=== PATIENT | female | born 1990 | race Caucasian/White ===

== ENCOUNTER 2021-04-02 14:40 | Emergency (ER) | payer OTHER, SELFPAY ==
--- NOTE | ~2021-04-02 | XR_ITS ---
EXAMINATION: XR hand RT min 3V DATE: 04/02/2021 15:04 INDICATION: Right hand injury and pain. TECHNIQUE: 3 views of right hand were obtained. COMPARISON: None. FINDINGS: Bone alignment is normal. No fracture. Joint spaces are well maintained. IMPRESSION: 1. Normal right hand. Reviewed, dictated and finalized at location B. IMPRESSION: 1. Normal right hand.
[2021-04-02 15:05] VITALS: BP 142/93; PULSE 96; RESP 16; TEMP 36.6; O2SAT 100
--- NOTE | 2021-04-02 15:19 | ED.UPPEXIN ---
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 EYES: Denies visual changes, redness, discharge. ENT: Denies rhinorrhea, congestion, sore throat, otalgia. CARDIOVASCULAR: Denies chest pain, palpitations, edema. RESPIRATORY: Denies dyspnea, wheezing, cough GASTROINTESTINAL: Denies abdominal pain, nausea, vomiting, diarrhea. GENITOURINARY: Denies dysuria, hematuria, abnormal discharge SKIN: Denies rash or itching. NEUROLOGIC: Denies numbness, or focal weakness. PSYCHIATRIC: Denies anxiety or depression. Right hand injury PMFSH Past Medical History Medical History No acute medical problems Family History Family History (Updated 04/02/21 @ 15:25 by Audra Billingsley CNP) Other No acute medical problems Social History Social History Smoking status: Never smoker Alcohol intake: current Gender identity (if verbalized by the patient): Female Comments At time of signature, I agree with nursing past medical, surgical, social and family history. There is no relevant family history pertinent to the presenting complaint. Blood pressure elevated at this visit and should follow-up with primary care physician Exam Narrative: Exam Narrative: GENERAL: This is a well-nourished, well-developed patient, in mild distress. HEAD: normocephalic, atraumatic. EYES: Sclera clear/white. Vision is grossly intact. EARS: External ears normal. Hearing grossly intact. NOSE: External nose normal without nasal discharge, nares without redness, no rhinorrhea. THROAT: Mucous membranes moist, NECK: Neck supple, non-tender CARDIOVASCULAR: Regular rate and rhythm without murmurs, gallops, or rubs. RESPIRATORY: Clear to auscultation. Breath sounds equal bilaterally. No wheezes, rales, or rhonchi. GASTROINTESTINAL: Abdomen soft, non-tender, SKIN: warm, intact with no suspicious lesions or rash, good texture and turgor. NEURO: awake, alert, and oriented to person, place and time. There were no obvious focal neurologic abnormalities. Steady gait EXTREMITIES: Normal range of motion. Base of right thumb is mildly edematous without ecchymosis able to do finger opposition and and nerve finger strength is equal BACK: Nontender without deformity Course Course Emergency Course: Patient comes to [facility] for evaluation of base of right thumb that was [facility] when a [id number] child fell on her hand that occurred today Right hand x-ray is unremarkable for fracture there is only mild edema to the base of the thumb Ricardo wrap applied given directions on rice and 1 day work excuse for Monday Vital Signs Vital signs: Vital Signs Temperature 97.8 F 04/02/21 15:05 Pulse Rate 96 04/02/21 15:05 Respiratory Rate 16 04/02/21 15:05 Blood Pressure 142/93 H 04/02/21 15:05 Pulse Oximetry 100 04/02/21 15:05 Temperature 97.8 F 04/02/21 15:05 Pulse Rate 96 04/02/21 15:05 Respiratory Rate 16 04/02/21 15:05 Blood Pressure 142/93 H 04/02/21 15:05 Pulse Oximetry 100 04/02/21 15:05 MDM - Extremity Injury (Upper) Differential Diagnosis Differential diagnosis: Likely sprain and s
== END 2021-04-02 15:35 | disposition home or self-care (01) ==
PROVIDERS: Emergency Provider Nurse Practitioner; PCP Physician Assistant
DX: S69.91XA Unspecified injury of right wrist, hand and finger(s), initial encounter (principal); W19.XXXA Unspecified fall, initial encounter
CPT/HCPCS: 73130; 99203; G0463

== ENCOUNTER 2021-06-10 14:17 | Emergency (ER) | payer OTHER, SELFPAY ==
[2021-06-10 14:27] VITALS: BP 152/93; PULSE 96; RESP 20; TEMP 36.6; O2SAT 100
--- NOTE | 2021-06-10 14:47 | ED.URI ---
HPI - URI/Sore Throat General Chief Complaint: Upper Respiratory Infection Stated Complaint: Cough Time Seen by Provider: 06/10/21 14:47 Source: patient Mode of arrival: ambulatory Limitations: no limitations History of Present Illness HPI Narrative: Fercho Parrish is a 30-year-old female with no PMH who comes to [facility] with complaints of a cough that started a week ago. 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 However the symptoms are improving she has a chronic cough that gets so bad she says that she will start coughing and cannot stop until she vomits Related Data Home Medications Medication Instructions Recorded Confirmed Pseudoephedrine Pe 06/10/21 Unknown Cough Suppresant 06/10/21 Unknown Nasal [place] 06/10/21 Allergies Allergy/AdvReac Type Severity Reaction Status Date / Time No Known Allergies Allergy Verified 06/10/21 14:30 Review of Systems Review of Systems: Narrative: CONSTITUTIONAL: Denies fever, chills, sweats. EYES: Denies visual changes, redness, discharge. ENT: Denies rhinorrhea, congestion, sore throat, otalgia. CARDIOVASCULAR: Denies chest pain, palpitations, edema. RESPIRATORY: Denies dyspnea, wheezing, intermittent dry cough that continues until she vomits GASTROINTESTINAL: Denies abdominal pain, nausea, vomiting, diarrhea. GENITOURINARY: Denies dysuria, hematuria, abnormal discharge SKIN: Denies rash or itching. NEUROLOGIC: Denies numbness, or focal weakness. PSYCHIATRIC: Denies anxiety or depression. [facility] Past Medical History Medical History No acute medical problems Family History Family History Other Diabetes mellitus Hypertension Social History Social History Smoking status: Never smoker Alcohol intake: current Gender identity (if verbalized by the patient): Female Comments At time of signature, I agree with nursing past medical, surgical, social and family history. There is no relevant family history pertinent to the presenting complaint. Patient has high blood pressure at this visit and should follow-up with her PCP (did not follow up from last visit) Exam Narrative: Exam Narrative: GENERAL: This is a well-nourished, well-developed patient, in mild distress. HEAD: normocephalic, atraumatic. EYES: . Sclera clear/white. Vision is grossly intact. EARS: External ears normal, auditory canals clear and without drainage, TMs normal without perforation. Hearing grossly intact. NOSE: External nose normal without nasal discharge, nares with mild redness, no rhinorrhea. Has nasal congestion THROAT: Mucous membranes moist, posterior pharynx mild erythema NECK: Neck supple, non-tender CARDIOVASCULAR: Regular rate and rhythm without murmurs, gallops, or rubs. RESPIRATORY: Coarse to auscultation. Breath sounds equal bilaterally. No wheezes, rales, or rhonchi. GASTROINTESTINAL: Abdomen soft, non-tender, SKIN: warm, intact with no suspicious lesions or rash, good texture and turgor. NEURO: awake, alert, and oriented to person, place and time. There were no obvious focal neurologic abnormalities. Steady gait EXTREMITIES: Normal range of motion. BACK: Nontender without deformity Course Course Emergency Course: Patient here with dry cough become spastic at times to report that she vomits. Still has nasal congestion Patient started on prednisone and codeine cough syrup Vital Signs Vital signs: Vital Signs Temperature 97.9 F 06/10/21 14:27 Pulse Rate 96 06/10/21 14:27 Respiratory Rate 20 06/10/21 14:27 Blood Pressure 152/93 H 06/10/21 14:27 Pulse Oximetry 100 06/10/21 14:27 Temperature 97.9 F 06/10/21 14:27 Pulse Rate 96 06/10/21 14:27 Respiratory Rate 20
== END 2021-06-10 15:12 | disposition home or self-care (01) ==
PROVIDERS: Emergency Provider Nurse Practitioner
DX: J40 Bronchitis, not specified as acute or chronic (principal)
CPT/HCPCS: 99213; G0463

== ENCOUNTER 2021-12-20 11:14 | Emergency (ER) | payer OTHER, SELFPAY ==
[2021-12-20 11:23] VITALS: BP 142/73; PULSE 94; RESP 18; TEMP 37.2; O2SAT 99
--- NOTE | 2021-12-20 11:39 | ED.EAR ---
HPI - Ear Problem General Chief complaint: Ear Stated complaint: Ear Pain Time Seen by Provider: 12/20/21 11:39 Source: patient, RN notes reviewed and old records reviewed Mode of arrival: ambulatory Limitations: no limitations History of Present Illness HPI Narrative: 31-year-old female presents to the [facility] with complaints of left ear pressure and sinus congestion for the last couple of days. Denies fever. States that she feels there is fluid in her ear. Has been using earwax remover to try to help with no improvement MD Complaint: ear pain Location: left ear Related Data Allergies Allergy/AdvReac Type Severity Reaction Status Date / Time No Known Allergies Allergy Verified 12/20/21 11:32 Review of Systems Review of Systems: All systems reviewed & are unremarkable except as noted in HPI and below Constitutional: Constitutional: Reports no additional constitutional complaints, Denies chills and Denies fever(s) Eyes: Eyes: Reports no additional eye complaints ENT: Reports as per HPI, Denies change in voice, Denies dental pain, Denies vertigo, Denies dizziness and Denies throat swelling Comments: Ear pain, left Cardiovascular: Cardiovascular: Reports no additional cardiovascular complaints, Denies chest pain and Denies dyspnea Respiratory: Respiratory: Reports no additional respiratory complaints, Denies cough and Denies dyspnea Gastrointestinal: Gastrointestinal: Reports no additional gastrointestinal complaints, Denies abdominal pain, Denies nausea and Denies vomiting Musculoskeletal: Musculoskeletal: Reports no additional musculoskeletal complaints Integumentary/Breasts: Skin/Breast: Reports system reviewed and no additional complaints, except as docu Neurologic: Reports system reviewed and no additional complaints, except as documented, Denies vertigo and Denies dizziness Psychiatric: Psychiatric: Reports no additional psychiatric complaints Allergic/Immunologic: Allergic/Immunologic: Reports no additional allergic/immunologic complaints and Denies throat swelling PMF Past Medical History Medical History No acute medical problems Family History Family History Other Diabetes mellitus Hypertension Social History Social History Smoking status: Never smoker Alcohol intake: current Gender identity (if verbalized by the patient): Female Comments At the time of my signature, I reviewed and agree with the nursing past medical, surgical, social, and family history. There is no relevant family history pertinent to the patient complaint. Exam Const: General: healthy appearing and no acute distress Nutritional Appearance: well nourished Orientation/consciousness: patient oriented x3 Limitations: no limitations HENMT: Head: normal to inspection Ears: external ears normal, TM's normal bilaterally (Right side normal), EAC's normal and TM abnormal bulging on the left and with fluid behind the TM; not erythematous and with no loss of landmarks General nose exam: Normal external nose present and Normal nasal mucous membranes and turbinates present Face and sinus: normal facial exam Mouth: Yes Normal oral and palatal mucosa present Throat: posterior oropharynx normal, tonsils normal and uvula midline Eyes: Conjunctivae: conjunctivae normal Pupils: Equal, round and reactive pupils present Neck: Neck: normal visual inspection, no lymphadenopathy and no meningeal signs Chest: Chest palpation & inspection: normal inspection of the chest Resp: Effort & Inspection: normal respiratory effort and no use of accessory muscles Auscultation: clear to auscultation bilaterally, no crackles, no rales, no rhonchi and no wheezes Cardio: Rate: regular rate Rhythm: regular rhythm : General: Yes no CVA tenderness Skin: General skin exam: normal color Rashes: no rashe
== END 2021-12-20 11:55 | disposition home or self-care (01) ==
PROVIDERS: Emergency Provider Nurse Practitioner
DX: H65.02 Acute serous otitis media, left ear (principal); Z86.16 Personal history of COVID-19
CPT/HCPCS: 99213; G0463

== ENCOUNTER 2022-02-08 18:47 | Emergency (ER) | payer OTHER, SELFPAY ==
[2022-02-08 18:58] VITALS: BP 119/88; PULSE 83; RESP 16; TEMP 36.2; O2SAT 98
--- NOTE | 2022-02-08 19:11 | ED.URI ---
HPI - URI/Sore Throat General Chief Complaint: Upper Respiratory Infection Stated Complaint: sore throat Time Seen by Provider: 02/08/22 19:11 Source: patient, family, RN notes reviewed and old records reviewed Mode of arrival: ambulatory Limitations: no limitations History of Present Illness HPI Narrative: 31-year-old female presents to the [facility] with complaints of sore throat, runny nose that started this morning. No treatment prior to arrival. Work told her she needed to be seen. Denies fevers, chest pain, abdominal pain. MD elicited complaint: sore throat, rhinorrhea and nasal congestion Related Data Allergies Allergy/AdvReac Type Severity Reaction Status Date / Time No Known Allergies Allergy Verified 02/08/22 19:14 Review of Systems Review of Systems: All systems reviewed & are unremarkable except as noted in HPI and below Constitutional: Constitutional: Reports no additional constitutional complaints, Denies chills, Denies fever(s) and Denies headache(s) Eyes: Eyes: Reports no additional eye complaints ENT: Reports as per HPI, Denies vertigo, Denies dizziness, Denies headache(s), Reports nasal congestion and Reports sore throat Cardiovascular: Cardiovascular: Reports no additional cardiovascular complaints, Denies chest pain, Denies syncope, Denies rapid heart rate and Denies dyspnea Respiratory: Respiratory: Reports no additional respiratory complaints, Denies cough, Denies dyspnea and Denies wheezing Gastrointestinal: Gastrointestinal: Reports no additional gastrointestinal complaints, Denies abdominal pain, Denies diarrhea, Denies nausea and Denies vomiting Musculoskeletal: Musculoskeletal: Reports no additional musculoskeletal complaints and Denies numbness Integumentary/Breasts: Skin/Breast: Reports system reviewed and no additional complaints, except as docu Neurologic: Reports system reviewed and no additional complaints, except as documented, Denies vertigo, Denies dizziness, Denies syncope, Denies headache(s), Denies focal weakness and Denies numbness Psychiatric: Psychiatric: Reports no additional psychiatric complaints Allergic/Immunologic: Allergic/Immunologic: Reports no additional allergic/immunologic complaints and Denies wheezing PMFSH Past Medical History Medical History No acute medical problems Family History Family History Other Diabetes mellitus Hypertension Social History Social History Smoking status: Never smoker Alcohol intake: current Gender identity (if verbalized by the patient): Female Comments At the time of my signature, I reviewed and agree with the nursing past medical, surgical, social, and family history. There is no relevant family history pertinent to the patient complaint. Exam Const: General: cooperative, healthy appearing, no acute distress, well developed and alert Nutritional Appearance: well nourished and obese Orientation/consciousness: patient oriented x3 Limitations: no limitations HENMT: Head: normal to inspection Ears: external ears normal, EAC's normal and TM abnormal with fluid behind the TM bilateral; not erythematous Eyes: Conjunctivae: conjunctivae normal Pupils: Equal, round and reactive pupils present Neck: Neck: normal visual inspection, no lymphadenopathy and no meningeal signs Chest: Chest palpation & inspection: normal inspection of the chest Resp: Effort & Inspection: normal respiratory effort and no use of accessory muscles Auscultation: clear to auscultation bilaterally, no crackles, no rales, no rhonchi and no wheezes Cardio: Rate: regular rate Rhythm: regular rhythm : General: Yes no CVA tenderness Back/Spine/Pelvis: Back: no CVA tenderness Skin: General skin exam: normal color Rashes: no rashes Wounds: no wounds Neuro: General: patient oriented
== END 2022-02-08 19:35 | disposition home or self-care (01) ==
PROVIDERS: Emergency Provider Nurse Practitioner
DX: B34.9 Viral infection, unspecified (principal); Z86.16 Personal history of COVID-19
CPT/HCPCS: 87804; 99213; G0463

== ENCOUNTER 2022-08-23 14:16 | Emergency (ER) | payer OTHER, SELFPAY ==
[2022-08-23 14:25] VITALS: BP 140/84; PULSE 88; RESP 16; TEMP 36.5; O2SAT 99
--- NOTE | 2022-08-23 14:49 | ED.URI ---
HPI - URI/Sore Throat General Chief Complaint: Upper Respiratory Infection Stated Complaint: sore throat Time Seen by Provider: 08/23/22 14:26 Source: patient, RN notes reviewed and old records reviewed Mode of arrival: ambulatory Limitations: no limitations History of Present Illness HPI Narrative: 31-year-old female presents to the [facility] with complaints of a sore throat that started 1 week ago. Denies fevers. Denies any other respiratory complaints. Has been gargling with salt water and taking ibuprofen. Patient states the right side hurts more than the left when she lays flat or swallows. Related Data Allergies Allergy/AdvReac Type Severity Reaction Status Date / Time No Known Allergies Allergy Verified 08/23/22 14:20 Review of Systems Review of Systems: All systems reviewed & are unremarkable except as noted in HPI and below Constitutional: Constitutional: Reports no additional constitutional complaints, Denies chills and Denies fever(s) Eyes: Eyes: Reports no additional eye complaints ENT: Reports as per HPI and Reports sore throat Cardiovascular: Cardiovascular: Reports no additional cardiovascular complaints Respiratory: Respiratory: Reports no additional respiratory complaints Gastrointestinal: Gastrointestinal: Reports no additional gastrointestinal complaints Musculoskeletal: Musculoskeletal: Reports no additional musculoskeletal complaints Integumentary/Breasts: Skin/Breast: Reports system reviewed and no additional complaints, except as docu Neurologic: Reports system reviewed and no additional complaints, except as documented Psychiatric: Psychiatric: Reports no additional psychiatric complaints Allergic/Immunologic: Allergic/Immunologic: Reports no additional allergic/immunologic complaints [facility] Past Medical History Medical History No acute medical problems Surgical History Surgical History (Updated 08/23/22 @ 19:56 by Aurora Aguilar APRN) No history of previous surgery Family History Family History Other Diabetes mellitus Hypertension Social History Social History Smoking status: Never smoker Alcohol intake: current Gender identity (if verbalized by the patient): Female Comments At the time of my signature, I reviewed and agree with the nursing past medical, surgical, social, and family history. There is no relevant family history pertinent to the patient complaint. Exam Const: General: healthy appearing, no acute distress, alert and well nourished Nutritional Appearance: well nourished and obese Orientation/consciousness: patient oriented x3 Limitations: no limitations HENMT: Head: normal to inspection Ears: external ears normal, TM's normal bilaterally and EAC's normal Face/Nose/Sinus: Normal external nose present and Normal nares present Face and sinus: normal facial exam Mouth: Yes Normal oral and palatal mucosa present Throat: posterior oropharynx normal, tonsils normal, uvula midline and no uvular edema Eyes: General: appearance normal, both eyes and all related structures Pupils: Equal, round and reactive pupils present Neck: Neck: normal visual inspection, no lymphadenopathy and no meningeal signs Chest: Chest palpation & inspection: normal inspection of the chest Resp: Effort & Inspection: normal respiratory effort and no use of accessory muscles Auscultation: clear to auscultation bilaterally, no crackles, no rales, no rhonchi and no wheezes Cardio: Rate: regular rate Rhythm: regular rhythm Back/Spine/Pelvis: Cervical Spine: normal cervical lordosis Thoracic/Lumbar Spine: thoracic and lumbar spine normal to inspection Skin: General skin exam: normal color Rashes: no rashes Wounds: no wounds Neuro: General: patient oriented x3, moves all extremities, no meningeal signs and
== END 2022-08-23 14:59 | disposition home or self-care (01) ==
PROVIDERS: Emergency Provider Nurse Practitioner
DX: J02.8 Acute pharyngitis due to other specified organisms (principal); Z86.16 Personal history of COVID-19
CPT/HCPCS: 87081; 87880; 99213; G0463

== ENCOUNTER 2025-03-17 21:43 | Emergency (ER) | payer SELFPAY ==
--- OUTSIDE RECORDS SUMMARY | 2025-03-17 21:46 | XMS_ITS | Clinical Summary ---
Author Organization [facility] Address [address] [place] [phone] Phone Care Team Providers [employer] Sales Manager Name Role Phone Unavailable Primary Care Provider Unavailabl e Allergies No known active allergies Medications ferrous sulfate 325 mg (65 mg iron) tablet Starting 05/08: Take 1 Tablet (325 mg) by mouth daily. 90 Tablet 1 05/07/2024 12:09 PM CDT Active levonorgestreL (Mirena) 21 mcg/24hr (up to 8 yrs) 52 mg IUD by Intrauterine route. 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, single gestation 04/17/2024 Encounters Date Type Department Care Team Description 03/04/2025 External Device Data [facility] ABSTRACTION Provider, Abstract 03/04/2025 External Device Data [facility] ABSTRACTION Provider, Abstract 02/05/2025 External Device Data [facility] ABSTRACTION Provider, Abstract 02/05/2025 External Device Data [facility] ABSTRACTION Provider, Abstract 01/25/2025 External Device Data [facility] ABSTRACTION Provider, Abstract 01/24/2025 External Device Data [facility] ABSTRACTION Provider, Abstract 01/21/2025 External Device Data [facility] ABSTRACTION Provider, Abstract 01/08/2025 External Device Data [facility] ABSTRACTION Provider, Abstract 01/07/2025 External Device Data [facility] ABSTRACTION Provider, Abstract 12/24/2024 External Device Data [facility] ABSTRACTION Provider, Abstract from Last 3 Months Immunizations Immunization Administration Dates Next Due (ADACEL/BOOSTRIX)(10 YR UP) TDAP VACCINE, 0.5ML, IM 07/14/2020 Family History Medical History Relation Name Comments Diabetes Father Donar Relation Name Status Comments Father Donar Alive Mother Alive Social History Tobacco Use Types Packs/Day Years Used Date Smoking Tobacco: Never Passive Smoke Exposure: Never Smokeless Tobacco: Never Tobacco Cessation:Counseling Given: Not Answered Alcohol Use Standard Drinks/Week Comments Not Currently 0 (1 standard drink = 0.6 oz pur e alcohol) Feeling Safe Answer Date Recorded Are you in a relationship wi th someone who hurts you emotionally and/or physically? No 06/19/2024 Comments No Sex and Gender Information Value Date Recorded Sex Assigned at Not on file Legal Sex Female 5:55 AM CDT Gender Identity Not on file Sexual Orientation Not on file Last Filed Vital Signs Vital Sign Reading Time Taken Comments Blood Pressure 136/88 09/09/2024 9:54 AM CDT Pulse 79 06/22/2024 6:43 AM CDT Temperature 36.3 C (97.4 F) 06/22/2024 12:30 AM CDT Respiratory Rate 16 06/22/2024 12:3 0 AM CDT Oxygen Saturation 97% 06/20/2024 2:15 PM CDT Inhaled Oxygen Concentration - - Weight 120.6 kg (265 lb 12.8 oz) 09/09/2024 9:54 AM CDT Height 157.5 cm (5' 2 ) 06/19/2024 6:41 AM CDT Body Mass Index 48.62 06/19/2024 6:41 AM CDT Plan of Treatment Health Maintenance Due Date Last Done Comments HEPATITIS B VACCINES (1 of 3 - 19+ 3-dose series) 2009 HPV/Cotest (21-29) 2011 CERVICAL CANCER SCREENING 2020 HPV/Cotest (30-65) 2020 PAP SMEAR 2020 INFLUENZA VACCINE (#1) 2024 DTAP/TDAP/TD VACCINES (2 - T d or Tdap) 07/14/2030 07/14/2020 HPV VACCINES Aged Out No longer eligi ble based on patient's age to complete this topic Insurance MEDICAID [place] [employer] RX Member Subscriber Plan / Payer (Ef fective for All Dates) Name:Fercho Parrish Relation to Subscriber:Self Name:Fercho Parrish Payer ID:Not on file Group ID:[id number] Type:RX Commercial Address: [address] [place] [employer] PL[employer] (INTERNAL) [facility] Advance Directives For more information, please contact: [phone] * Full Code (Latest Code Status on File) Date Activated Date Inactivated Comments 06/20/2024 6:07 PM 06/22/2024 6:03 PM * Full Code Date Activated Date Inactivated Comments 06/19/2024 7:31 AM 06/20/2024 6:07 PM * Full Code Date Activated Date Inactivated Comments 05/08/2024 7:22 PM 05/09/2024 9:54 PM * Full Code Date Activated Date Inactivated Comments 05/06/2024 6:37 PM 05/07/2024 2:14 PM * Full Code Date Activated Date Inactivated Comments 04/17/2024 6:53 PM 04/22/2024 4:38 PM
--- OUTSIDE RECORDS SUMMARY | 2025-03-17 21:46 | XMS_ITS | Encounter Summary ---
Author Organization [facility] Health Address [address] [place] [address] Care Team Providers Care Pollution Control Chemist Name Role Phone Unavailable Primary Care Provider Unavailabl e Reason for Visit * Reason Onset Date Comments Insurance Issue/question 02/08/2024 Encounter Details Date Type Department Care Team (Late st Contact Info) Description 02/08/2024 Telephone [facility] & Care at [facility] [place] [address] [place] [address] Sallie Hawthorne Insurance Issue/question Social History Tobacco Use Types Packs/Day Years Used Date Smoking Tobacco: Never Smokeless Tobacco: Never Comments Yes Sex and Gender Information Value Date Recorded Sex Assigned at Not on file Legal Sex Female 5:25 PM CDT Gender Identity Not on file Sexual Orientation Not on file documented as of this encounter Miscellaneous Notes * Telephone Encounter - Sallie Hawthorne - 02/08/2024 10:34 AM CDT Patient was scheduled in [facility] under an Out of Network insurance plan, [facility] Individual Exchange plan. I spoke with patient and explained that her visits would not be covered under her insurance since [facility] does not have a contract with that particular plan. I advised her to contact her primary OB as well as her insurance to try to find an in network provider. She agreed to do so. I told her I was going to cancel her appointments with [facility]. documented in this encounter Plan of Treatment Not on file documented as of this encounter Visit Diagnoses Not on filedocumented in this encounter
--- OUTSIDE RECORDS SUMMARY | 2025-03-17 21:46 | XMS_ITS | Clinical Summary ---
Author Organization [facility] Address [address] [place] [id number] Care Team Providers Care Roving Carrier Name Role Phone No, Physician Primary Care Provider [phone] Allergies No known active allergies Medications vit [id number] a 27mg iron- 800 mcg-250 mg capsule Take by mouth Active aspirin 325 mg 81 mg Activ e NIFEdipine (NIFEdipine XL) 30 mg 24 hr tablet Take 1 tablet (30 mg total) by mouth daily 30 tablet 11 02/14/2024 Active Medical History Medical History Date Comments Gestational hypertension affecting second pregna ncy Social History Tobacco Use Types Packs/Day Years Used Date Smoking Tobacco: Never Assessed Personal Safety Answer Date Recorded Have you ever been in or are you currently in a harmful physical or emotional relationship or is someone making you feel afraid or unsafe? Denies 02/14/2024 Comments No Sex and Gender Information Value Date Recorded Sex Assigned at Not on file Legal Sex Female 2:33 PM CDT Gender Identity Female 02/14/2024 12:14 PM CDT Sexual Orientation Not on file Obstetrics History Para Term AB IAB SAB Ectopic Multiple Livin g Live Births 3 1 1 1 1 1 1 Date Outcome GA Total Labor Labor/2nd/3rd Weight Sex Type Anes PTL Lauryn A1 A5 Name Clin Term C-Sec tion Living SAB Last Filed Vital Signs Vital Sign Reading Time Taken Comments Blood Pressure 152/76 02/14/2024 1:40 PM CDT Pulse 78 02/14/2024 1:40 PM CDT Temperature 36.7 C (98 F) 02/14/2024 12:10 PM CDT Respiratory Rate 14 02/14/2024 1:40 PM CDT Oxygen Saturation 100% 02/14/2024 12:10 PM CDT Inhaled Oxygen Concentration - - Weight - - Height - - Body Mass Index - - Plan of Treatment Health Maintenance Due Date Last Done Comments Cervical Cancer Screening 1990 Depression Screening 1990 Hepatitis C Screening 1990 Varicella Vaccines (1 of 2 - 13+ 2-dose series) 2003 Hepatitis B Screening 2008 Regular Well Visit/Exam 18-64 2008 Influenza Vaccine (Season Ended) 2025 DTaP/Tdap/Td Vaccine (3 - Td or Tdap) 06/07/2033 06/07/2023, 07/14/2020 HPV Vaccines Aged Out No longer eligi ble based on patient's age to complete this topic Pneumococcal vaccine <65 Aged Out No longer eligible based on patient's age to complete this topic [place] [employer] [place] Sub[place] Plan / Payer (Ef fective 2023-Present) Name:Fercho Parrish Relation to Subscriber:Self Name:Fercho Parrish Payer ID:[id number] (NAIC) Group ID:[id number] Type:HEALTHCARE/EXCHANGE Address[address] Care Teams Roving Carrier Relationship Specialty Start Date End Date No, Physician PCP - General 02/08/24
--- OUTSIDE RECORDS SUMMARY | 2025-03-17 21:46 | XMS_ITS | Referral Summary ---
Author Organization [facility] Address [address] [place] [id number] Care Team Providers Care Paperhanger Assistant Name Role Phone No, Physician Primary Care Provider [phone] Allergies No known active allergies Medications vit [id number]-dh a 27mg iron- 800 mcg-250 mg capsule Take by mouth Active aspirin 325 mg 81 mg Activ e NIFEdipine (NIFEdipine XL) 30 mg 24 hr tablet Take 1 tablet (30 mg total) by mouth daily 30 tablet 11 02/14/2024 Active Social History Tobacco Use Types Packs/Day Years [...] PM CDT Sexual Orientation Not on file Last Filed [...] Mass Index - - Plan of Treatment Not on file Insurance Care Teams Paperhanger Assistant Relationship Specialty Start Date End Date No, Physician PCP - General 02/08/24
--- OUTSIDE RECORDS SUMMARY | 2025-03-17 21:46 | XMS_ITS | Data Portability ---
Author Organization [employer] , [facility]_Yossi Address [address] [place] [address] Assessment No assessment recorded. Plan of Treatment Reminders Order Date Submit Date Provider Last Modified By Organization Details Last Modified Time Details Appointments None recorded. Lab unlisted lab - -i nduced hypertensio n panel (phi) ([facility]) 2023 024 [facility] [place] [facility], [address] [place], [address], 4 11:05:17 protein:cre atinine ratio, urine 2023 024 [facility], [address] [place], [address], 4 11:52:12 CBC w/ auto diff 2023 024 [facility], [address] [place] [address], [address], 4 16:06:09 obstetric screen, serum or blood 2023 024 [facility], [address] [place], [address], 4 10:18:09 CBC w/ auto diff 2023 024 [facility] [place] [facility] [place] [address], [address] [place], [address], 4 11:30:41 glucose tolerance test, post-50G, 1-hour 2023 024 [facility], [address] [place], [address], 4 09:52:07 measles igg Ab, serum 2023 [facility], [address] [place], [address], 4 12:36:17 CMP, serum or plasma 2023 [facility], [address] [place], [address], 4 09:52:09 unlisted lab - uric acid 2023 [facility], [address] [place], [address], 4 09:52:03 protein:cre atinine ratio, urine 2023 Sina [facility], [address] [facility], [place], [address], 4 10:18:10 afp (alpha-feto protein) panel, maternal screen, serum 2023 S[facility], [address] [place], [address], 4 19:02:45 Referral None recorded. Procedures None recorded. Surgeries None recorded. Imaging None recorded. Medication Orders None recorded. Patient TargetsNo targets recorded. Patient Instructions Encounter Date Encounter Id Patient Instructions Last Modified By Organization Details Last Modified Time 01/16/2024 [id number] - Apply Cetaphil lotion or Aquaphor to dry skin and eczema as needed. - Maintain a healthy diet and stay active during . - Limit weight gain to 10 lbs or less during . - Attend regular care appointments. - Monitor for any new or worsening symptoms and report to the healthcare provider. [email or web address] Not available 01/16/2024 22:22:27 We discussed the patient's anxiety regarding her and the importance of monitoring her health closely throughout the . We addressed her dry skin and eczema, recommending the use of Cetaphil lotion or Aquaphor. We also discussed the importance of maintaining a healthy diet, staying active, and limiting weight gain to 10 lbs or less during . The patient was informed about potential risks such as gestational diabetes and hypertension. [email or web address] Not available 01/16/2024 22:22:27 04/12/2024 [id number] learning about depression during Not available 04/12/2024 16:17:29 learning about screening for gestational diabetes Not available 04/12/2024 16:17:29 Reason for Referral None Reported. Results Created Date Observation Date Name Description Value Unit Range Abnormal Flag Note LastModifiedBy Organization Detail LastModifiedTime 12/24/19 24 12/24/2023 [UNIT Y] ANEUP LOIDY NIPT fraction 2.8% normal Not Available [facility] [address] [facility], [place], [address], 12/24/2023 17:31:59 12/24/19 24 12/24/2023 [UNIT Y] ANEUP LOIDY NIPT Rh(D) nipt normal DETEC RADHA - If pregn ant patie nt is RhD negat susan, this indic ates an RhD posit susan fetus . If pregn ant patie nt is RhD posit susan, this resul t is not clini matt relev ant and could refle ct or mater nal RhD. Not Available [facility] [address] [facility], [place], [address], 12/24/2023 17:31:59 12/24/19 24 12/24/2023 [UNIT Y] ANEUP LOIDY NIPT sex chromosome aneuploidy NOT DETECT ED normal Not Available [facility] [address] [facility], [place], [address], 12/24/2023 17:31:59 12/24/19 24 12/24/2023 [UNIT Y] ANEUP LOIDY NIPT monosomy X LOW RISK <1 in 10,000 normal Not Available [facility] [address] [facility], [place], [address], 12/24/2023 17:31:59 12/24/19 24 12/24/2023 [UNIT Y] ANEUP LOIDY NIPT trisomy 13 LOW RISK <1 in 10,000 normal Not Available [facility] [address] [facility] , [place], [address], 12/24/2023 17:31:59 12/24/19 24 12/24/2023 [UNIT Y] ANEUP LOIDY NIPT trisomy 18 LOW RISK <1 in 10,000 normal Not Available [facility] [address], [place], [address], 12/24/2023 17:31:59 12/24/19 24 12/24/2023 [UNIT Y] ANEUP LOIDY NIPT trisomy 21 LOW RISK <1 in 10,000 normal Not Available [facility] [address] [facility], [place], [address], 12/24/2023 17:31:59 12/24/19 24 12/24/2023 [UNIT Y] ANEUP LOIDY NIPT sex MALE normal Not Available [facility] [address] [facility], [place], [address], 12/24/2023 17:31:59 12/24/19 24 12/24/2023 [UNIT Y] ANEUP LOIDY NIPT gestation SINGLE TON normal Not Available [facility] [address] [facility], [place], [address], 12/24/2023 17:31:59 12/24/19 24 12/24/2023 [UNIT Y] ANEUP LOIDY NIPT for detailed report, see pdf See PDF normal Not Available [facility] [address] [facility], [place], [address], 12/24/2023 17:31:59 12/26/19 24 12/26/2023 VARIC DEE OSEGUERA R VIRUS ANTIB ALDO (IGG) varicella zoster virus antibody (IgG) 686.10 index normal Index Inter preta tion ----- ---- ----- ----- ----- ----- -- <135. 00 Negat susan - Antib aldo not detec radha 135.0 0 - 164.9 9 Equiv ocal > or = 165.0 0 Posit susan - Antib aldo detec radha A posit susan resul t indic ates that the patie nt has antib aldo to VZV but does not diffe renti ate betwe en an activ e or past infec tion. The clini muna diagn osis must be inter prete d in conju nctio n with the clini muna signs and sympt oms of the patie nt. This assay relia bisi measu res immun ity due to previ ous infec tion but may not be sensi tive enoug h to detec t antib odies induc ed by vacci natio n. Thus, a negat susan resul t in a vacci nated indiv idual does not neces saril y indic ate susce ptibi lity to VZV infec tion. A more sensi tive test for vacci natio n-ind uced immun ity is Varic dee Oseguera r Virus Antib aldo Immun ity Scree n, ACIF. Not Available [facility] [place] [address] [place], [address], 12/26/2023 15:51:54 12/26/19 24 12/26/2023 HEMOG LOBIN OPATH Y EVALU ATION red blood cell count 5.14 chandler on/uL 3.80-5 .10 high Not Available [facility] [address] [address] [place], [address], 12/26/2023 15:51:55 12/26/19 24 12/26/2023 HEMOG LOBIN OPATH Y EVALU ATION hemoglobin 11.4 g/dL 11.7-1 5.5 low Not Available [facility] [address] [address] [place], [address], 12/26/2023 15:51:55 12/26/19 24 12/26/2023 HEMOG LOBIN OPATH Y EVALU ATION hematocrit 38.4 % 35.0-4 5.0 Not Available [address], [address], 12/26/2023 15:51:55 12/26/19 24 12/26/2023 HEMOG LOBIN OPATH Y EVALU ATION MCV 74.7 fL 80.0-1 00.0 low Not Available [address], [address], 12/26/2023 15:51:55 12/26/19 24 12/26/2023 HEMOG LOBIN OPATH Y EVALU ATION MCH 22.2 pg 27.0-3 3.0 low Not Available [address], [address], 12/26/2023 15:51:55 12/26/19 24 12/26/2023 HEMOG LOBIN OPATH Y EVALU ATION RDW 17.4 % 11.0-1 5.0 high Not Available [address], [address], 12/26/2023 15:51:55 12/26/19 24 12/26/2023 HEMOG LOBIN OPATH Y EVALU ATION hemoglobin A 98.1 % >96.0 Not Available [address], [address], 12/26/2023 15:51:55 12/26/19 24 12/26/2023 HEMOG LOBIN OPATH Y EVALU ATION hemoglobin F <1.0 % <2.0 Not Available [address], [address], 12/26/2023 15:51:55 12/26/19 24 12/26/2023 HEMOG LOBIN OPATH Y EVALU ATION hemoglobin A2 (quant) 1.9 % 2.2-3. 2 low Not Available [address] [address] [place], [address], 12/26/2023 15:51:55 12/26/19 24 12/26/2023 HEMOG LOBIN OPATH Y EVALU ATION interpretati on Rain l hemog lobin distr ibuti on, no HgS, HgC or other abnor mal hemog lobin obser yari. Minim al decre ase in hemog lobin A2 is relat ively commo n acqui red disor haley. It is commo nly decre ased in iron defic iency anemi a and lead poiso sarbjit. It may also be decre ased in alpha thala ssemi a. Not Available [address], [address], 12/26/2023 15:51:55 12/26/19 24 12/26/2023 ANTIB ALDO SCREE N, RBC W/REF L ID, TITER AND AG antibody screen, RBC w/refl id, titer and Ag NO ANTIBO DIES DETECT ED normal Refer ence range No antib odies detec radha This assay is a scree sarbjit test for the detec tion of red blood cell antib odies . The test is not to be used for pretr ansfu eliz scree sarbjit or for the medic al manag ement of an alloi mmuni zed pregn jayjay. Not Available [address] [place], [address], 12/26/2023 15:51:56 12/26/19 24 12/26/2023 ABO GROUP AND RH TYPE ABO group A Not Available [facility] [address] [place] [address] [place], [address], 12/26/2023 15:51:56 12/26/19 24 12/26/2023 ABO GROUP AND RH TYPE Rh type RH(D) POSITI VE For addit ional infor rochelle raya e refer to http: //[facility] gnost ics.c om/fa q/FAQ 111 (This link is being provi ded for infor matio nal/ educa matt l purpo ses only. ) NO COLLE CTION DATE RECEI YARI. WE HAVE USED THE DATE THE SPECI MEN WAS RECEI YARI BY THIS LABOR ATORY THE COLLE CTION DATE. IF THIS IS INCOR RECT, PLEAS E CONTA CT CLIEN T SERVI CLEOPATRA. PHONE TYLER R: [phone] Not Available [facility] [address] [place], [address], 12/26/2023 15:51:56 01/10/20 24 01/10/2024 [UNIT Y] ANTHONY ER SCREE N fraction 1.8% normal Not Available [facility] [address] [facility], [place], [address], 01/10/2024 02:05:32 01/10/20 24 01/10/2024 [UNIT Y] ANTHONY ER SCREE N alpha-thalas semia nipt result LOW RISK 1 in 2,300 ( patern al ethnic ity); 1 in 14,000 (Gener al popula tion) normal Not Available [facility] [address] [facility], [place], [address], 01/10/2024 02:05:32 01/10/20 24 01/10/2024 [UNIT Y] ANTHONY ER SCREE N sickle cell disease/beta -thalassemia /hemoglobino pathies carrier screen NEGATI VE normal Not Available [facility] [address] [facility], [place], [address], 01/10/2024 02:05:32 01/10/20 24 01/10/2024 [UNIT Y] ANTHONY ER SCREE N alpha-thalas semia carrier screen POSITI VE Silent cornelia r; aa/a- abnormal Not Available [facility] [address] [facility], [place], [address], 01/10/2024 02:05:32 01/10/20 24 01/10/2024 [UNIT Y] ANTHONY ER SCREE N cystic fibrosis carrier screen NEGATI VE normal Not Available [facility] [address] [facility], [place], [address], 01/10/2024 02:05:32 01/10/20 24 01/10/2024 [UNIT Y] ANTHONY [facility] spinal muscular atrophy carrier screen NEGATI VE 2 SMN1 copies , SNP not presen t normal Not Available [facility] [address], [place], [address], 01/10/2024 02:05:32 01/10/20 24 01/10/2024 [UNIT Y] ANTHONY [facility] for detailed report, see pdf See PDF normal Not Available [facility] [address], [place], [address], 01/10/2024 02:05:32 04/13/20 24 04/13/2024 URIC ACID uric acid 4.2 mg/dL 2.6 - 6.0 normal Not Available [address], [address], 04/13/2024 09:52:03 04/18/20 24 04/18/2024 MEASL ES AB (IGG) , IMMUN E STATU S measles Ab (IgG), immune status 27.50 AU/mL normal AU/mL Inter preta tion ----- ----- ----- ---- <13.5 0 Not consi stent with immun ity 13.50 -16.4 9 Equiv ocal >16.4 9 Consi stent with immun ity The prese nce of measl es IgG sugge sts immun izati on or past or curre nt infec tion with measl es virus . For addit ional infor rochelle raya e refer to http: //[facility] margaret Coon stDia gnost ics.c om/fa q/FAQ 162 (This link is being provi ded for infor liliana dodson/ educa matt l purpo ses only. ) NO COLLE CTION DATE RECEI YARI. WE HAVE USED THE DATE THE SPECI MEN WAS RECEI YARI BY THIS LABOR ATORY THE COLLE CTION DATE. IF THIS IS INCOR RECT, PLEAS E CONTA CT CLIEN T SERVI CLEOPATRA. PHONE NUMBE R: [phone] Not Available [facility] [address] [place], [address], 04/18/2024 12:36:17 12/19/19 24 12/20/2023 HEMOG LOBIN A1C hemoglobin A1C 5.5 % <5.7 normal The refer ence range for HbA1c is indic ated in the table below . Sugge sted Diagn osis =6.5% Consi stent with diabe mattie 5.7 6.4% Consi stent with incre ased risk for diabe mattie (pred iabet ic) <5.7% Consi stent with the absen ce of diabe mattie Not Available [address], [address], 12/20/2023 10:51:18 12/19/19 24 12/20/2023 COMPR EHENS SUSAN METAB OLIC PANEL sodium 137 mmol/ L 136 - 145 normal Not Available [address], [address], 12/20/2023 11:12:43 12/19/19 24 12/20/2023 COMPR EHENS SUSAN METAB OLIC PANEL potassium 3.9 mmol/ L 3.5 - 5.1 normal Not Available [address], [address], 12/20/2023 11:12:43 12/19/19 24 12/20/2023 COMPR EHENS SUSAN METAB OLIC PANEL chloride 100 mmol/ L 98 - 107 normal Not Available [address], [address], 12/20/2023 11:12:43 12/19/19 24 12/20/2023 COMPR EHENS SUSAN METAB OLIC PANEL glucose 99 mg/dL 74 - 106 normal Not Available [address], [address], 12/20/2023 11:12:43 12/19/19 24 12/20/2023 COMPR EHENS SUSAN METAB OLIC PANEL carbon dioxide 25 mmol/ L 20 - 32 normal Not Available [address], [address], 12/20/2023 11:12:43 12/19/19 24 12/20/2023 COMPR EHENS SUSAN METAB OLIC PANEL calcium 9.7 mg/dL 8.5 - 10.1 normal Not Available [address], [address], 12/20/2023 11:12:43 12/19/19 24 12/20/2023 COMPR EHENS SUSAN METAB OLIC PANEL creatinine 0.53 mg/dL 0.60 - 1.00 low Not Available [address], [address], 12/20/2023 11:12:43 12/19/19 24 12/20/2023 COMPR EHENS SUSAN METAB OLIC PANEL eGFR 125 mL/mi n/1.7 3m2 >60 normal The eGFR is based on the CKD-E PI 2020 perezat ion. To calcu late the new eGFR from a previ ous Creat inine or Cysta jensen C resul t, go to https ://kieran reed.estiven [place]/jeri tijerina s/tawnya qi/gf r_cal culat or Not Available [address], [address], 12/20/2023 11:12:43 12/19/19 24 12/20/2023 COMPR EHENS SUSAN METAB OLIC PANEL AST 19 U/L 32 - 40 low Not Available [address], [address], 12/20/2023 11:12:43 12/19/19 24 12/20/2023 COMPR EHENS SUSAN METAB OLIC PANEL ALT 44 U/L 14 - 59 normal Not Available [address], [address], 12/20/2023 11:12:43 12/19/19 24 12/20/2023 COMPR EHENS SUSAN METAB OLIC PANEL alk phos 60 U/L 46 - 116 normal Not Available [address], [address], 12/20/2023 11:12:43 12/19/19 24 12/20/2023 COMPR EHENS SUSAN METAB OLIC PANEL albumin 3.1 g/dL 3.4 - 5.0 low Not Available [address], [address], 12/20/2023 11:12:43 12/19/19 24 12/20/2023 COMPR EHENS SUSAN METAB OLIC PANEL protein, total 7.2 g/dL 6.4 - 8.2 normal Not Available [address], [address], 12/20/2023 11:12:43 12/19/19 24 12/20/2023 COMPR EHENS SUSAN METAB OLIC PANEL bilirubin, total 0.2 mg/dL 0.2 - 1.0 normal Not Available [address], [address], 12/20/2023 11:12:43 12/19/19 24 12/20/2023 COMPR EHENS SUSAN METAB OLIC PANEL urea nitrogen (BUN) 6 mg/dL normal Not Available [address], [address], 12/20/2023 11:12:43 12/19/19 24 12/20/2023 URIC ACID uric acid 4.4 mg/dL 2.6 - 6.0 normal Not Available [address], [address], 12/20/2023 11:22:48 12/19/19 24 12/20/2023 OB PANEL - STD BLOOD WORK hep BS Ag Non-Re active non-re active normal Not Available [address], [address], 12/20/2023 12:31:10 12/19/19 24 12/20/2023 OB PANEL - STD BLOOD WORK hep C Ab Non-Re active non-re active normal Not Available [address], [address], 12/20/2023 12:31:10 12/19/19 24 12/20/2023 OB PANEL - STD BLOOD WORK HIV 1/2 Ag/Ab Non-Re active non-re active normal Not Available [address], [address], 12/20/2023 12:31:10 12/19/19 24 12/20/2023 OB PANEL - STD BLOOD WORK syphilis Ab Non-Re active non-re active normal Not Available [address], [address], 12/20/2023 12:31:10 12/19/19 24 12/20/2023 OB PANEL - STD BLOOD WORK rubella Ab IgG 83.50 IU/mL normal INTER PRETI VE INFOR MATIO N: Rubel la Antib aldo, IgG. < 5.0 IU/mL ..... ..... . Not consi stent with immun ity 5.0 - 9.9 IU/mL ..... . Equiv ocal: Indet ermin ate-R epeat testi ng in 10-14 days may be helpf ul. > or = 10.0 IU/mL ... Consi stent with immun ity The prese nce of Rubel la IgG antib aldo sugge st respo nse to immun izati on or prior /curr ent expos ure to the Rubel la virus . Not Available [address], [address], 12/20/2023 12:31:10 12/19/19 24 12/20/2023 CBC (INCL UDES DIFF/ PLT) WBC 14.7 thous and/u L 4.0 - 9.8 high Not Available [address], [address], 12/20/2023 16:20:15 12/19/19 24 12/20/2023 CBC (INCL UDES DIFF/ PLT) RBC 5.1 chandler on/uL 3.9 - 4.9 high Not Available [address], [address], 12/20/2023 16:20:15 12/19/19 24 12/20/2023 CBC (INCL UDES DIFF/ PLT) hemoglobin 11.6 g/dL 11.8 - 14.8 low Not Available [address], [address], 12/20/2023 16:20:15 12/19/19 24 12/20/2023 CBC (INCL UDES DIFF/ PLT) hematocrit 36.2 % 35.5 - 44.0 normal Not Available [address], [address], 12/20/2023 16:20:15 12/19/19 24 12/20/2023 CBC (INCL UDES DIFF/ PLT) MCV 71.1 fL 82.0 - 99.0 low COMME NT: MCV = Verif ied by smear revie w Not Available [address], [address], 12/20/2023 16:20:15 12/19/19 24 12/20/2023 CBC (INCL UDES DIFF/ PLT) MCH 22.8 pg 27.2 - 32.6 low Not Available [address], [address], 12/20/2023 16:20:15 12/19/19 24 12/20/2023 CBC (INCL UDES DIFF/ PLT) MCHC 32.0 g/dL 31.5 - 35.5 normal Not Available [address], [address], 12/20/2023 16:20:15 12/19/19 24 12/20/2023 CBC (INCL UDES DIFF/ PLT) RDW-CV 18.5 % 11.5 - 14.5 high Not Available [address], [address], 12/20/2023 16:20:15 12/19/19 24 12/20/2023 CBC (INCL UDES DIFF/ PLT) platelet 356 thous and/u L 140 - 350 high Not Available [address], [address], 12/20/2023 16:20:15 12/19/19 24 12/20/2023 CBC (INCL UDES DIFF/ PLT) MPV 11.2 fL 9.3 - 12.4 normal Not Available [address], [address], 12/20/2023 16:20:15 12/19/19 24 12/20/2023 CBC (INCL UDES DIFF/ PLT) absolute neutrophil 11.16 thous and/u L 1.90 - 7.00 high Not Available [address], [address], 12/20/2023 16:20:15 12/19/19 24 12/20/2023 CBC (INCL UDES DIFF/ PLT) absolute lymphocyte 2.33 thous and/u L 0.70 - 4.50 normal Not Available [address], [address], 12/20/2023 16:20:15 12/19/19 24 12/20/2023 CBC (INCL UDES DIFF/ PLT) absolute monocyte 1.01 thous and/u L 0.10 - 1.30 normal Not Available [address], [address], 12/20/2023 16:20:15 12/19/19 24 12/20/2023 CBC (INCL UDES DIFF/ PLT) absolute eosinophil 0.08 thous and/u L <0.70 normal Not Available [address], [address], 12/20/2023 16:20:15 12/19/19 24 12/20/2023 CBC (INCL UDES DIFF/ PLT) absolute basophil 0.04 thous and/u L <0.20 normal Not Available [address], [address], 12/20/2023 16:20:15 12/19/19 24 12/20/2023 CBC (INCL UDES DIFF/ PLT) absolute immature granulocyte 0.03 thous and/u L <0.03 normal Not Available [address], [address], 12/20/2023 16:20:15 12/19/19 24 12/21/2023 PROT/ CREAT - U RANDO M protein, urine 7 mg/dL 6 - 24 normal Not Available [address], [address], 12/21/2023 11:17:01 12/19/19 24 12/21/2023 PROT/ CREAT - U RANDO M creatinine, urine 207 mg/dL 20 - 275 normal Not Available [address], [address], 12/21/2023 11:17:01 12/19/19 24 12/21/2023 PROT/ CREAT - U RANDO M protein/crea tinine ratio, random urine 0.031 mg/mg _crea t 0.024 - 0.184 normal Not Available [address], [address], 12/21/2023 11:17:01 12/19/19 24 12/21/2023 DRUG ABUSE PANEL 7 W/CON FIRM amphetamines Negati ve negati ve normal Not Available [address], [address], 12/21/2023 12:14:33 12/19/19 24 12/21/2023 DRUG ABUSE PANEL 7 W/CON FIRM barbiturates Negati ve negati ve normal Not Available [address], [address], 12/21/2023 12:14:33 12/19/19 24 12/21/2023 DRUG ABUSE PANEL 7 W/CON FIRM benzodiazepi nicci Negati ve negati ve normal Not Available [facility] [address] [place], [address], 12/21/2023 12:14:33 12/19/19 24 12/21/2023 DRUG ABUSE PANEL 7 W/CON FIRM cocaine metabolites Negati ve negati ve normal Not Available [facility] [address] [place], [address], 12/21/2023 12:14:33 12/19/19 24 12/21/2023 DRUG ABUSE PANEL 7 W/CON FIRM cannabinoids Negati ve negati ve normal Not Available [facility] [address] [place], [address], 12/21/2023 12:14:33 12/19/19 24 12/21/2023 DRUG ABUSE PANEL 7 W/CON FIRM methadone Negati ve. negati ve normal Not Available [facility] [address] [place], [address], 12/21/2023 12:14:33 12/19/19 24 12/21/2023 DRUG ABUSE PANEL 7 W/CON FIRM opiates Negati ve negati ve normal Not Available [facility] [address] [place], [address], 12/21/2023 12:14:33 12/19/19 24 12/21/2023 DRUG ABUSE PANEL 7 W/CON FIRM creatinine, urine 206 mg/dL 20 - 275 normal Not Available [facility] [address] [place], [address], 12/21/2023 12:14:33 12/19/19 24 12/21/2023 CT/NG chlamydia trachomatis CT neg negati ve normal This repor t is inten ded for us in clini muna monit oring and manag ement of patihugo nts. It is not inten ded for use in medic al-le gal appli catio n. Not Available [facility] [address] [place], [address], 12/21/2023 13:38:17 12/19/19 24 12/21/2023 CT/NG neisseria gonorrhoeae GC neg negati ve normal This repor t is inten ded for us in clini muna monit oring and manag ement of andria roth. It is not inten ded for use in medic [facility] appli catio n. Not Available [facility] [address] [place], [address], 12/21/2023 13:38:17 12/19/19 24 12/22/2023 CULTU RE, URINE , ROUTI NE culture, urine, routine SEE NOTE abnormal CULTU RE, URINE , ROUTI NE Micro Numbe r: [id number] Test Statu s: Final Speci men Sourc e: Urine Speci men Quali ty: Adequ ate Resul t: Great er than 100,0 00 CFU/m L of Esche paxton a coli E.col i ----- ----- ----- - INT KATHERINE AMOX/ CLAVU LANAT E S 4 AMP/S ULBAC MERAZ S <=2 CEFAZ LONA NR <=4 2 CEFEP DIANA S <=0.1 2 CEFTA ZIDIM E S <=1 CEFTR IAXON E S <=0.2 5 CIPRO FLOXA LAKEISHA S <=0.0 6 GENTA MICIN S 2 LEVOF LOXAC IN S <=0.1 2 MEROP ENEM S <=0.2 5 NITRO FURAN TOIN S <=16 PIP/T AZOBA CTAM S <=4 TRIME THOPR IM/RICK LFA S <=20 S=Shantel cepti ble I=Int ermed iate R=Res istan t * = Not Teste d NR = Not Repor radha NN = See Thera py Comme nts THERA PY COMME NTS Note 1: For infec tions other than uncom plica radha UTI cause d by E. coli, K. pneum oniae or P. mirab ilis: Cefaz lona is resis tant if KATHERINE > or = 8 mcg/m L. (Dist ingui shing susce ptibl e versu s inter media te for isola mattie with KATHERINE < or = 4 mcg/m L requi res addit ional testi ng.) Note 2: For uncom plica radha UTI cause d by E. coli, K. pneum oniae or P. mirab ilis: Cefaz lona is susce ptibl e if KATHERINE <32 mcg/m L and predi cts susce ptibl e to the oral agent s cefac jennifer, cefdi lashon, cefpo doxim e, cefpr ozil, cefur oxime , cepha lexin and lorac arbef . Not Available [address], [address], 12/22/2023 19:05:50 01/16/20 24 01/18/2024 MATER NAL SERUM AFP interpretati on: Scree n negat susan for open NTD. Not Available [address], [address], 01/18/2024 19:02:45 01/16/20 24 01/18/2024 MATER NAL SERUM AFP risk for ontd <1 IN 5000 Not Available [address], [address], 01/18/2024 19:02:45 01/16/20 24 01/18/2024 MATER NAL SERUM AFP AFP, serum 22.4 NG/mL Not Available [address], [address], 01/18/2024 19:02:45 01/16/20 24 01/18/2024 MATER NAL SERUM AFP AFP MOM 0.96 Not Available [facility] [address], [address], 01/18/2024 19:02:45 01/16/20 24 01/18/2024 MATER NAL SERUM AFP comments: This patie nt's ARMAND (lizzette mated date of rita lee) was used to calcu late the gesta matt l age. The AFP test resul t indic ates that this patie nt is scree n negat susan for open NTD. It shoul d be noted that rain l test resul ts can never guara ntee the of a rain l baby and that 2-3% of [facility] rns have some type of physi muna or menta l defec t, many of which are undet ectab le throu gh any known prena nayan diagn ostic techn ique. Not Available [facility] [id number] [place], [address], 01/18/2024 19:02:45 01/16/20 24 01/18/2024 MATER NAL SERUM AFP comment This is a scree sarbjit test, not a diagn ostic test. This risk asses sment repor t is based in part on demog raphi c data provi ded by the order ing physi yaa. Pleas e notif y the labor atory promp tly if any data are incor rect. For huber tance with recal culat ions, pleas e call your local [facility] . For huber tance with inter preta tion of these resul ts, pleas e conta ct your Local [facility] elor or call [phone] INFO( [phone]). Inter preti ve Cutof fs Scree n Posit susan for Open NTD: > or = 2.50 adjus radha MOM > or = 1.90 adjus radha MOM for insul in-de pende nt diabe tics > or = 4.00 adjus radha MOM for twins > or = 3.50 adjus radha MOM for twins insul in-de pende nt diabe tics > or = 4.50 adjus radha MOM for tripl ets For addit ional infor rochelle raya e refer to http: //ange whitehead.que claireia gnost ics.c om/fa q/FAQ 74v1 (This link is being provi ded for infor liliana dodson/ educa matt l purpo ses only. ) Not Available [facility] [address] [place], [address], 01/18/2024 19:02:45 01/16/20 24 01/18/2024 MATER NAL SERUM AFP calc'd gestational age 16.0 weeks Not Available [address], [address], 01/18/2024 19:02:45 01/16/20 24 01/18/2024 MATER NAL SERUM AFP maternal weight 276 lbs Not Available [address], [address], 01/18/2024 19:02:45 01/16/20 24 01/18/2024 MATER NAL SERUM AFP est'd date of delivery 2023 Not Available [address], [address], 01/18/2024 19:02:45 01/16/20 24 01/18/2024 MATER NAL SERUM AFP armand determined by ULTRAS OUND Not Available [address], [address], 01/18/2024 19:02:45 01/16/20 24 01/18/2024 MATER NAL SERUM AFP mother's ethnic origin CAUCAS ISHMAEL Not Available [address], [address], 01/18/2024 19:02:45 01/16/20 24 01/18/2024 MATER NAL SERUM AFP number of fetuses 1 Not Available [address], [address], 01/18/2024 19:02:45 01/16/20 24 01/18/2024 MATER NAL SERUM AFP insulin depend diabetic NO Not Available [address], [address], 01/18/2024 19:02:45 01/16/20 24 01/18/2024 MATER NAL SERUM AFP repeat specimen NO Not Available [address] [place], [address], 01/18/2024 19:02:45 01/16/20 24 01/18/2024 MATER NAL SERUM AFP Hx of neural tube defects NO Not Available [place] [address] [place], [address], 01/18/2024 19:02:45 01/16/20 24 01/18/2024 MATER NAL SERUM AFP prev down synd NO Not Available [address] [address] [place], [address], 01/18/2024 19:02:45 01/16/20 24 01/18/2024 MATER NAL SERUM AFP donor egg NO Not Available [address] [address] [place], [address], 01/18/2024 19:02:45 01/16/20 24 01/18/2024 MATER NAL SERUM AFP donor age: egg retrieval NOT GIVEN Not Available [address] [address] [place], [address], 01/18/2024 19:02:45 04/12/20 24 04/13/2024 (50G) 1HR - GLUCO SE NOA ANCE TEST, GESTA MATT L SCREE N glucose (50g) 1 hour 134 mg/dL <135 normal Not Available [facility] [address], [address], 04/13/2024 09:52:07 04/12/20 24 04/13/2024 COMPR EHENS SUSAN METAB OLIC PANEL sodium 138 mmol/ L 136 - 145 normal Not Available [address], [address], 04/13/2024 09:52:09 04/12/20 24 04/13/2024 COMPR EHENS SUSAN METAB OLIC PANEL potassium 4.0 mmol/ L 3.5 - 5.1 normal Not Available [address], [address], 04/13/2024 09:52:09 04/12/2004/13/2024 COMPR EHENS SUSAN METAB OLIC PANEL chloride 103 mmol/ L 98 - 107 normal Not Available [address], [address], 04/13/2024 09:52:09 04/12/2004/13/2024 COMPR EHENS SUSAN METAB OLIC PANEL glucose 132 mg/dL 74 - 106 high Not Available [address], [address], 04/13/2024 09:52:09 04/12/2004/13/2024 COMPR EHENS SUSAN METAB OLIC PANEL carbon dioxide 22 mmol/ L 20 - 32 normal Not Available [address], [address], 04/13/2024 09:52:09 04/12/20 24 04/13/2024 COMPR EHENS SUSAN METAB OLIC PANEL calcium 8.5 mg/dL 8.5 - 10.1 normal Not Available [address], [address], 04/13/2024 09:52:09 04/12/20 24 04/13/2024 COMPR EHENS SUSAN METAB OLIC PANEL creatinine 0.57 mg/dL 0.60 - 1.00 low Not Available [address], [address], 04/13/2024 09:52:09 04/12/2004/13/2024 COMPR EHENS SUSAN METAB OLIC PANEL eGFR 123 mL/mi n/1.7 3m2 >60 normal The eGFR is based on the CKD-E PI 2020 perezat juwan. To calcu late the new eGFR from a previ ous Creat inine or Cysta tin C resul t, go to https ://kieran reed.estiven sheffield/pr allen tijerina s/darrino qi/gf r_cal culat or Not Available [address], [address], 04/13/2024 09:52:09 04/12/20 24 04/13/2024 COMPR EHENS SUSAN METAB OLIC PANEL AST < 15 U/L 32 - 40 low Not Available [address], [address], 04/13/2024 09:52:09 04/12/20 24 04/13/2024 COMPR EHENS SUSAN METAB OLIC PANEL ALT 20 U/L 14 - 59 normal Not Available [address], [address], 04/13/2024 09:52:09 04/12/2004/13/2024 COMPR EHENS SUSAN METAB OLIC PANEL alk phos 81 U/L 46 - 116 normal Not Available [address], [address], 04/13/2024 09:52:09 04/12/20 24 04/13/2024 COMPR EHENS SUSAN METAB OLIC PANEL albumin 2.4 g/dL 3.4 - 5.0 low Not Available [address], [address], 04/13/2024 09:52:09 04/12/20 24 04/13/2024 COMPR EHENS SUSAN METAB OLIC PANEL protein, total 6.6 g/dL 6.4 - 8.2 normal Not Available [address], [address], 04/13/2024 09:52:09 04/12/20 24 04/13/2024 COMPR EHENS SUSAN METAB OLIC PANEL bilirubin, total 0.2 mg/dL 0.2 - 1.0 low Not Available [address], [address], 04/13/2024 09:52:09 04/12/20 24 04/13/2024 COMPR EHENS SUSAN METAB OLIC PANEL urea nitrogen (BUN) 7 mg/dL 6 - 31 normal Not Available [facility] [address] [place] [address], [address], 04/13/2024 09:52:09 04/12/20 24 04/13/2024 OB 28W (SYPH HIV 1/2 Ag/Ab Non-Re active non-re active normal Not Available [address], [address], 04/13/2024 10:18:09 04/12/20 24 04/13/2024 OB 28W (SYPH syphilis Ab Non-Re active non-re active normal Not Available [address], [address], 04/13/2024 10:18:09 04/12/20 24 04/13/2024 PROT/ CREAT - U RANDO M protein, urine 6 mg/dL 6 - 24 normal Not Available [facility] [address] [place] [address], [address], 04/13/2024 10:18:10 04/12/20 24 04/13/2024 PROT/ CREAT - U RANDO M creatinine, urine 73 mg/dL 20 - 275 normal Not Available [address], [address], 04/13/2024 10:18:10 04/12/20 24 04/13/2024 PROT/ CREAT - U RANDO M protein/crea tinine ratio, random urine 0.088 mg/mg _crea t 0.024 - 0.184 normal Not Available [address], [address], 04/13/2024 10:18:10 04/12/20 24 04/13/2024 CBC (INCL UDES DIFF/ PLT) WBC 16.3 thous and/u L 4.0 - 9.8 high Not Available [address], [address], 04/13/2024 11:30:41 04/12/20 24 04/13/2024 CBC (INCL UDES DIFF/ PLT) RBC 4.3 chandler on/uL 3.9 - 4.9 normal Not Available [facility] [address] [place], [address], 04/13/2024 11:30:41 04/12/20 24 04/13/2024 CBC (INCL UDES DIFF/ PLT) hemoglobin 9.8 g/dL 11.8 - 14.8 low Not Available [employer] [place], [address], 04/13/2024 11:30:41 04/12/20 24 04/13/2024 CBC (INCL UDES DIFF/ PLT) hematocrit 31.0 % 35.5 - 44.0 low Not Available [employer] [place], [address], 04/13/2024 11:30:41 04/12/20 24 04/13/2024 CBC (INCL UDES DIFF/ PLT) MCV 71.8 fL 82.0 - 99.0 low Not Available [employer] [place], [address], 04/13/2024 11:30:41 04/12/2004/13/2024 CBC (INCL UDES DIFF/ PLT) MCH 22.7 pg 27.2 - 32.6 low Not Available [place], [address], 04/13/2024 11:30:41 04/12/2004/13/2024 CBC (INCL UDES DIFF/ PLT) MCHC 31.6 g/dL 31.5 - 35.5 normal Not Available [employer] [place], [address], 04/13/2024 11:30:41 04/12/20 24 04/13/2024 CBC (INCL UDES DIFF/ PLT) RDW-CV 16.2 % 11.5 - 14.5 high Not Available [employer] [place], [address], 04/13/2024 11:30:41 04/12/20 24 04/13/2024 CBC (INCL UDES DIFF/ PLT) platelet 337 thous and/u L 140 - 350 normal Not Available [address], [address], 04/13/2024 11:30:41 04/12/20 24 04/13/2024 CBC (INCL UDES DIFF/ PLT) MPV 11.4 fL 9.3 - 12.4 normal Not Available [address], [address], 04/13/2024 11:30:41 04/12/20 24 04/13/2024 CBC (INCL UDES DIFF/ PLT) absolute neutrophil 12.52 thous and/u L 1.90 - 7.00 high Not Available [address], [address], 04/13/2024 11:30:41 04/12/20 24 04/13/2024 CBC (INCL UDES DIFF/ PLT) absolute lymphocyte 2.26 thous and/u L 0.70 - 4.50 normal Not Available [address], [address], 04/13/2024 11:30:41 04/12/20 24 04/13/2024 CBC (INCL UDES DIFF/ PLT) absolute monocyte 1.10 thous and/u L 0.10 - 1.30 normal Not Available [address], [address], 04/13/2024 11:30:41 04/12/20 24 04/13/2024 CBC (INCL UDES DIFF/ PLT) absolute eosinophil 0.19 thous and/u L <0.70 normal Not Available [address], [address], 04/13/2024 11:30:41 04/12/20 24 04/13/2024 CBC (INCL UDES DIFF/ PLT) absolute basophil 0.07 thous and/u L <0.20 normal Not Available [facility] [address] [place], [address], 04/13/2024 11:30:41 04/12/20 24 04/13/2024 CBC (INCL UDES DIFF/ PLT) absolute immature granulocyte 0.15 thous and/u L <0.03 high Not Available [address], [address], 04/13/2024 11:30:41 04/12/20 24 04/13/2024 MANUA L DIFFE RENTI AL WBC differential Auto-d iffere ntial approv ed. Not Available [facility] [address] [place], [address], 04/13/2024 11:30:42 04/12/20 24 04/13/2024 MANUA L DIFFE RENTI AL platelet estimate Consis tent with count Not Available [facility] [address] [place], [address], 04/13/2024 11:30:42 04/12/20 24 04/13/2024 MANUA L DIFFE RENTI AL anisocytosis 1+ Not Available [address], [address], 04/13/2024 11:30:42 04/12/20 24 04/13/2024 MANUA L DIFFE RENTI AL macrocytosis 1+ Not Available [address], [address], 04/13/2024 11:30:42 04/12/20 24 04/13/2024 MANUA L DIFFE RENTI AL microcytosis 1+ Not Available [facility] [address] [place] [address], [address], 04/13/2024 11:30:42 04/12/20 24 04/13/2024 MANUA L DIFFE RENTI AL pappenheimer bodies Presen t Not Available [facility] [address] [place], [address], 04/13/2024 11:30:42 04/12/20 24 04/13/2024 PRABHA RAMIRES AL polychromasi a 1+ Not Available [facility] and [address], [address], 04/13/2024 11:30:42 04/12/20 24 04/13/2024 PRABHA RAMIRES AL tear drop cell 1+ Not Available [facility] and [address], [address], 04/13/2024 11:30:42 04/24/20 24 04/25/2024 PIH - PREGN JAYJAY- INDUC ED HYPER TENSI ON PANEL sodium 136 mmol/ L 136 - 145 normal Not Available [address], [address], 04/25/2024 11:05:17 04/24/20 24 04/25/2024 PIH - PREGN JAYJAY- INDUC ED HYPER TENSI ON PANEL potassium 4.4 mmol/ L 3.5 - 5.1 normal Not Available [address], [address], 04/25/2024 11:05:17 04/24/20 24 04/25/2024 PIH - PREGN JAYJAY- INDUC ED HYPER TENSI ON PANEL chloride 102 mmol/ L 98 - 107 normal Not Available [address], [address], 04/25/2024 11:05:17 04/24/20 24 04/25/2024 PIH - PREGN JAYJAY- INDUC ED HYPER TENSI ON PANEL glucose 83 mg/dL 74 - 106 normal Not Available [address], [address], 04/25/2024 11:05:17 04/24/20 24 04/25/2024 PIH - PREGN JAYJAY- INDUC ED HYPER TENSI ON PANEL carbon dioxide 22 mmol/ L 20 - 32 normal Not Available [address], [address], 04/25/2024 11:05:17 04/24/20 24 04/25/2024 PIH - PREGN JAYJAY- INDUC ED HYPER TENSI ON PANEL calcium 8.9 mg/dL 8.5 - 10.1 normal Not Available [address], [address], 04/25/2024 11:05:17 04/24/20 24 04/25/2024 PIH - PREGN JAYJAY- INDUC ED HYPER TENSI ON PANEL creatinine 0.55 mg/dL 0.60 - 1.00 low Not Available [address], [address], 04/25/2024 11:05:17 04/24/20 24 04/25/2024 PIH - PREGN JAYJAY- INDUC ED HYPER TENSI ON PANEL eGFR 124 mL/mi n/1.7 3m2 >60 normal The eGFR is based on the CKD-E PI 2020 equat ion. To calcu late the new eGFR from a previ ous Creat inine or Cysta tin C resul t, go to https ://kieran reed.estiven [place]/jeri tijerina s/darrino qi/gf r_cal culat or Not Available [address], [address], 04/25/2024 11:05:17 04/24/20 24 04/25/2024 PIH - PREGN JAYJAY- INDUC ED HYPER TENSI ON PANEL AST 21 U/L 15 - 37 normal Not Available [address], [address], 04/25/2024 11:05:17 04/24/20 24 04/25/2024 PIH - PREGN JAYJAY- INDUC ED HYPER TENSI ON PANEL ALT 38 U/L 14 - 59 normal Not Available [address], [address], 04/25/2024 11:05:17 04/24/20 24 04/25/2024 PIH - PREGN JAYJAY- INDUC ED HYPER TENSI ON PANEL alk phos 90 U/L 46 - 116 normal Not Available [address], [address], 04/25/2024 11:05:17 04/24/20 24 04/25/2024 PIH - PREGN JAYJAY- INDUC ED HYPER TENSI ON PANEL albumin 2.5 g/dL 3.4 - 5.0 low Not Available [address], [address], 04/25/2024 11:05:17 04/24/20 24 04/25/2024 PIH - PREGN JAYJAY- INDUC ED HYPER TENSI ON PANEL protein, total 6.8 g/dL 6.4 - 8.2 normal Not Available [address], [address], 04/25/2024 11:05:17 04/24/20 24 04/25/2024 PIH - PREGN JAYJAY- INDUC ED HYPER TENSI ON PANEL bilirubin, total 0.3 mg/dL 0.2 - 1.0 normal Not Available [address], [address], 04/25/2024 11:05:17 04/24/20 24 04/25/2024 PIH - PREGN JAYJAY- INDUC ED HYPER TENSI ON PANEL urea nitrogen (BUN) 6 mg/dL 7 - 18 low Not Available [address], [address], 04/25/2024 11:05:17 04/24/20 24 04/25/2024 PIH - PREGN JAYJAY- INDUC ED HYPER TENSI ON PANEL uric acid 5.3 mg/dL 2.6 - 6.0 normal Not Available [address], [address], 04/25/2024 11:05:17 04/24/20 24 04/25/2024 PROT/ CREAT - U RANDO M protein, urine 49.2 mg/dL <11.9 high Not Available [facility] [address] [place], [address], 04/25/2024 11:52:12 04/24/20 24 04/25/2024 PROT/ CREAT - U RANDO M creatinine, urine 343 mg/dL 20 - 275 high Not Available [address], [address], 04/25/2024 11:52:12 04/24/20 24 04/25/2024 PROT/ CREAT - U RANDO M protein/crea tinine ratio, random urine 0.143 mg/mg _crea t 0.024 - 0.184 normal Not Available [address], [address], 04/25/2024 11:52:12 04/24/20 24 04/25/2024 CBC (INCL UDES DIFF/ PLT) WBC 16.0 thous and/u L 4.0 - 9.8 high Not Available [address], [address], 04/25/2024 16:06:09 04/24/20 24 04/25/2024 CBC (INCL UDES DIFF/ PLT) RBC 4.3 chandler on/uL 3.9 - 4.9 normal Not Available [address], [address], 04/25/2024 16:06:09 04/24/20 24 04/25/2024 CBC (INCL UDES DIFF/ PLT) hemoglobin 9.7 g/dL 11.8 - 14.8 low Not Available [address], [address], 04/25/2024 16:06:09 04/24/20 24 04/25/2024 CBC (INCL UDES DIFF/ PLT) hematocrit 31.1 % 35.5 - 44.0 low Not Available [address], [address], 04/25/2024 16:06:09 04/24/20 24 04/25/2024 CBC (INCL UDES DIFF/ PLT) MCV 72.3 fL 82.0 - 99.0 low COMME NT: MCV = Verif ied by smear revie w Not Available [address], [address], 04/25/2024 16:06:09 04/24/20 24 04/25/2024 CBC (INCL UDES DIFF/ PLT) MCH 22.6 pg 27.2 - 32.6 low Not Available [address], [address], 04/25/2024 16:06:09 04/24/20 24 04/25/2024 CBC (INCL UDES DIFF/ PLT) MCHC 31.2 g/dL 31.5 - 35.5 low Not Available [address], [address], 04/25/2024 16:06:09 04/24/20 24 04/25/2024 CBC (INCL UDES DIFF/ PLT) RDW-CV 18.0 % 11.5 - 14.5 high Not Available [address], [address], 04/25/2024 16:06:09 04/24/20 24 04/25/2024 CBC (INCL UDES DIFF/ PLT) platelet 346 thous and/u L 140 - 350 normal Not Available [address], [address], 04/25/2024 16:06:09 04/24/20 24 04/25/2024 CBC (INCL UDES DIFF/ PLT) MPV 11.3 fL 9.3 - 12.4 normal Not Available [address], [address], 04/25/2024 16:06:09 04/24/20 24 04/25/2024 CBC (INCL UDES DIFF/ PLT) absolute neutrophil 12.62 thous and/u L 1.90 - 7.00 high Not Available [address], [address], 04/25/2024 16:06:09 04/24/20 24 04/25/2024 CBC (INCL UDES DIFF/ PLT) absolute lymphocyte 1.84 thous and/u L 0.70 - 4.50 normal Not Available [address], [address], 04/25/2024 16:06:09 04/24/20 24 04/25/2024 CBC (INCL UDES DIFF/ PLT) absolute monocyte 1.13 thous and/u L 0.10 - 1.30 normal Not Available [address], [address], 04/25/2024 16:06:09 04/24/20 24 04/25/2024 CBC (INCL UDES DIFF/ PLT) absolute eosinophil 0.15 thous and/u L <0.70 normal Not Available [address], [address], 04/25/2024 16:06:09 04/24/20 24 04/25/2024 CBC (INCL UDES DIFF/ PLT) absolute basophil 0.06 thous and/u L <0.20 normal Not Available [address], [address], 04/25/2024 16:06:09 04/24/20 24 04/25/2024 CBC (INCL UDES DIFF/ PLT) absolute immature granulocyte 0.17 thous and/u L <0.03 high Not Available [address], [address], 04/25/2024 16:06:09 04/24/20 24 04/25/2024 PRABHA RAMIRES AL WBC differential Auto-d iffere ntial approv ed. Not Available [address], [address], 04/25/2024 16:06:10 04/24/20 24 04/25/2024 MANUA L DIFFE RENTI AL platelet estimate Consis tent with count Not Available [facility] [address] [place], [address], 04/25/2024 16:06:10 04/24/20 24 04/25/2024 MANUA L DIFFE RENTI AL anisocytosis 1+ Not Available [facility] [address] [place], [address], 04/25/2024 16:06:10 04/24/20 24 04/25/2024 MANUA L DIFFE RENTI AL hypochromia 1+ Not Available [facility] [address] [place], [address], 04/25/2024 16:06:10 04/24/20 24 04/25/2024 MANUA L DIFFE RENTI AL macrocytosis 1+ Not Available [facility] [address] [place] [address], [address], 04/25/2024 16:06:10 04/24/20 24 04/25/2024 MANUA L DIFFE RENTI AL microcytosis 2+ Not Available [facility] [address] [place], [address], 04/25/2024 16:06:10 04/24/20 24 04/25/2024 MANUA L DIFFE RENTI AL pappenheimer bodies Presen t Not Available [facility] [address] [place], [address], 04/25/2024 16:06:10 04/24/20 24 04/25/2024 MANUA L DIFFE RENTI AL polychromasi a 1+ Not Available [facility] [address] [place], [address], 04/25/2024 16:06:10 02/22/20 24 02/22/2024 US, obste tric, follo w-up No observ ation record ed. [email or web address] [facility] [address] [facility], [place], [address], 02/23/2024 22:03:07 02/22/20 24 02/22/2024 US, obste tric, mater nal evalu ation + anato my No observ ation record ed. [address] [facility] [address], [place], [address], 02/23/2024 13:48:28 03/21/20 24 03/21/2024 US, obste tric No observ ation record ed. [address] [place] [address] [facility], [place], [address], 03/27/2024 10:30:12 03/21/20 24 03/21/2024 US, obste tric No observ ation record ed. [address] [facility] [address], [place], [address], 03/22/2024 14:53:45 04/17/20 24 04/17/2024 US, obste tric, follo w-up No observ ation record ed. [place] [address] [address] [facility], [place], [address], 04/22/2024 08:43:11 05/15/20 24 05/15/2024 US, obste tric, follo w-up No observ ation record ed. [address], [place], [address], 05/27/2024 12:28:27 06/14/20 24 06/14/2024 US, obste tric, limit ed No observ ation record ed. [address], [place], [address], 06/17/2024 12:24:01 Result Notes None recorded. Problems Name Problem SNOMED Code Status Onset Date Resolution Date Notes Provider Name and Address Organization Details Recorded Time Pregnanc y 87720509 Completed 202312/20/2024 Tramleticia Ruvalcaba null, [place] - [facility] 5 16:56:00 Past pregnanc y history of section 382926124 Active x1; planning repeat c/s Amaya Grace MD [address] [place] [address], [phone], [facility] 4 14:53:28 Past pregnanc y history of section 453509959 Completed x1; planning repeat c/s Amaya Grace MD [address] [place] [address], [phone], [facility] 4 14:53:28 Body mass index 40+ - severely obese 575020419 Completed 50.7 Amaya Grace MD [address] [place] [address], [phone], [facility] 4 14:53:28 Body mass index 40+ - severely obese 365416497 Active 50.7 Amaya Grace MD [address] [place] [address], [phone], [facility] 4 14:53:28 Past pregnanc y history of gestatio nal hyperten eliz 139622484 Completed States it was right before delivery , she was never on medicati on and they did not dx pre-E Amaya Grace MD [address] [place] [address], [phone], [facility] 4 14:53:28 Past pregnanc y history of gestatio nal hyperten eliz 185643463 Active States it was right before delivery , she was never on medicati on and they did not dx pre-E Amaya Grace MD [address] [place] [address], [phone], [facility] IV 4 14:53:28 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 [id number] 108 Completed UNITY low risk fetus Amaya Grace MD [address] [place] [address], [phone], [facility] - [facility] 4 14:53:28 Maternal obesity complica ting pregnanc y, childbir th and the puerperi , antepart 62459791595 7 Active 2023 Amaya Grace MD [address] [place] [address], [phone], [facility] - [facility] 4 14:53:28 Maternal obesity complica ting pregnanc y, childbir th and the puerperi , [facility] [id number] 7 Completed 2023 Amaya Grace MD [address] [place] [address], [phone], [facility] - [facility] IV 14:53:28 Essentia l hyperten eliz 87629231 Completed 2023 Dx'd triage in [facility]. HELLP Labs WNL. Procardi a 30 qday disconti nued. Amaya Grace MD [address] [place] [address], [phone], [facility] - [facility] 16:30:21 Dilatati on of renal pelvis Completed Right, 5.2mm, MFM followin g Amaya Grace MD [address] [place] [address], [phone], [facility] - [facility] IV 14:53:28 Problem Notes None recorded. Procedures Surgical History Date Name Laterality Status Provider Name and Address Organization Details Recorded Time delivery completed Matt Rodas [place] - [facility] 04/12/2024 16:06:21 Imaging Results Imaging Date Name Status LastModified by Organiz ation Details LastModified Time 02/22/2024 US, obstetric, follow-up completed [email or web address] [facility] [address], [place], [address], 02/23/2024 22:03:07 02/22/2024 US, obstetric, maternal evaluation + anatomy completed [email or web address] [facility] [address], [place], [address], 02/23/2024 13:48:28 03/21/2024 US, obstetric completed [email or web address] [facility] [address] [facility], [place], [address], 03/27/2024 10:30:12 03/21/2024 US, obstetric completed [email or web address] [facility] [address], [place], [address], 03/22/2024 14:53:45 04/17/2024 US, obstetric, follow-up completed [place] [address] [place], [address], 04/22/2024 08:43:11 05/15/2024 US, obstetric, follow-up completed [facility] [address] [facility], [place], [address], 05/27/2024 12:28:27 06/14/2024 US, obstetric, limited completed [facility] [address] [place] [address], [place], [address], 06/17/2024 12:24:01 Procedure Notes None recorded. Medical Equipment None Reported. Allergies No known drug allergies Medications Name Sig Start Date Stop Date Status Note LastModified by Organization Details LastModified Time nifedipine ER 30 mg tablet,ext ended release 24 hr TAKE 1 TABLET BY MOUTH TWICE DAILY active Not Available Not Available No t Available aspirin 81 mg tablet,del ayed release TAKE 2 TABLETS BY MOUTH ONCE DAILY FOR 31 DAYS active Not Available Not Available No t Available ferrous sulfate 325 mg (65 mg iron) tablet TAKE 1 TABLET BY MOUTH TWICE DAILY active Not Available Not Available No t Available labetalol 300 mg tablet active Not Available Not Available Not Available nitrofuran toin monohydrat e/macrocry stals 100 mg capsule TAKE 1 CAPSULE BY MOUTH EVERY 12 HOURS FOR 7 DAYS 01/16 completed Not Available Not Available Not Available labetalol active Not Available Not Robyn ilable Not Available vit-iron fum-folic ac active 28mg iron-80 0mcg tablet Not Available Not Available Not Available Vitals Date Recorded Body height Body mass index (BMI) Systolic blood pressure Diastolic blood pressure Provider Name and Address Organization Details Last Updated DateTime 01/16/2024 157.48 cm 50.5 kg/m2 126 mm[Hg] 76 mm[Hg] Geri Pollock [place] - [facility] 01/16/2024 15:08:51 Date Recorded Body weight Provider Name an d Address Organization Details Last Updated DateTime 01/16/2024 565912.05370 g Not Available [employer] by [employer] 22:22:21 Date Recorded Body height Body mass index (BMI) Body temperature Systolic blood pressure Diastolic blood pressure Provider Name and Address Organization Details Last Updated DateTime 02/16/2024 157.48 cm 50.1 kg/m2 98 [degF] 138 mm[Hg] 86 mm[Hg] Susan Browning [facility] 4 14:18:27 Date Recorded Body weight Provider Name an d Address Organization Details Last Updated DateTime 02/16/2024 342800.72758 g Nelda Tristan, [facility] [address] [place], [address], [facility] 02/17/2024 12:59:58 Date Recorded Body height Body mass index (BMI) Body weight Body temperature Systolic blood pressure Diastolic blood pressure Provider Name and Address Organization Details Last Updated DateTime 4 157.48 cm 50.2 kg/m2 379281. 177091 g 97 [degF] 130 mm[Hg] 90 mm[Hg] Jer Ruvalcaba [place] [facility] 4 15:48:29 Date Recorded Body height Body mass index (BMI) Body weight Body temperature Systolic blood pressure Diastolic blood pressure Provider Name and Address Organization Details Last Updated DateTime 4 157.48 cm 51 kg/m2 231123. 83 g 97.5 [degF] 130 mm[Hg] 82 mm[Hg] Matt Rodas [facility] 4 16:03:30 Date Recorded Body height Body mass index (BMI) Body weight Body temperature Systolic blood pressure Diastolic blood pressure Provider Name and Address Organization Details Last Updated DateTime 157.48 cm 50.4 kg/m2 005998. 34 g 97.5 [degF] 128 mm[Hg] 76 mm[Hg] Karen Hutchison [employer] 13:51:34 Social History Question Answer Notes LastModified by Organizat ion Details LastModified Time Tobacco Smoking Status Never Smoker Aurora Hou null, [facility] 11/28/2023 12:23:13 What Is Your Level Of Alcohol Consumption? None [email or web address] Information not available 02/16/2024 Are You Blind Or Do You Have Difficulty Seeing? No [email or web address] Information not available 11/28/2023 Are You Currently Employed? Yes [email or web address] Information not available 11/28/2023 Are You Deaf Or Do You Have Serious Difficulty Hearing? No [email or web address] Information not available 11/28/2023 What Type Of Diet Are You Following? REGULAR [email or web address] Information not available 11/28/2023 How Many Children Do You Have? 1 Information not available 11/28/2023 What Is Your Relationship Status? Information not available 11/28/2023 Are You Sexually Active? Yes [email or web address] Information not available 11/28/2023 Do You Use Any Illicit Or Recreational Drugs? No [email or web address] Information not available 11/28/2023 Sex: Unknown Functional Status Question Answer Note LastModified by Organization D etails LastModified Time What is your exercise level? None [email or web address] Information not available 03/12/2024 Mental Status None recorded. Family History Relationship Description Onset Age of this Age Resolved Age Notes LastModified by Organization Details LastModified Time Father No current problems or disability [email or web address] Not available 11/28 12:22:43 Mother No current problems or disability [email or web address] Not available 11/28 12:22:43 Medical History Condition Response Cytomegalovirus N Hyperthyroidism N Incontinence N Polycystic Ovarian Syndrome N Hematuria N Kidney Infection N Kidney Disease N Gallbladder disease N Frequent Urinary Tract infections N GERD (reflux) N Endometrial Cancer N Hepatitis N RPR N Chicken Pox N Colon Cancer N Breast Cancer N Hypothyroidism N Shingles N Tuberculosis/Positive PPD N Cervical Cancer N Chlamydia N Liver Disease N HIV N Sickle Cell Disease/Trait N Anemia Y Gonorrhea N Rubella N Ulcerative Colitis N Gynecological History Statement/Question Response Flow Heavy Frequency of Cycle (Q days) 35 Date of LMP 09/26/2023 HPV Vaccine N Date of Last Pap Smear Duration of Flow (days) 4 Most Recent Mammogram Current Control Method Age at Menarche 11 Obstetrics History GPAL:G 3 P 1 0 1 1 Type Value Full Term 1 Spontaneous 1 Living 1 Total 3 Past Encounters Encounter ID Performer Location Encounter Start Date Encounter Closed Date Diagnosis/Indication Diagnosis SNOMED-CT Code Diagnosis ICD10 Code Diagnosis Note [id number] JAIME TRUJILLO [address] [address] 11/28/2023 11:23:18 11/28/2023 17:17:26 test positive 442572232 Z32.01 Body mass index 40+ - severely obese 646007114 Z68.43 BMI 50.7; Will have pt meet with delivery provider for 1st OB to assess if pt will be able to stay with our practice. Past pregn jayjay history of section 203453825 Z98.709 [id number] JAIME [address]O [address] [address] 2023 15:53:00 2023 17:02:25 Gestation period, 12 weeks 00909819 Z3A.12 Guide: Given and reviewed. Toxoplasmo sis precaution s reviewed. Reviewed office visit schedule during . Reviewed Quickening and normal FHTs. Routine an tenatal care 083769044 Z34.90 Past pregn jayjay history of section 053572519 Z98.890 desires screening 2437 21861 Z36.0 Carrier de tection, molecular genetics 3827174 Z14.8 Body mass index 40+ - severely obese 350846611 Z68.43 BMI 50.7; Will have pt meet with delivery provider for 1st OB to assess if pt will be able to stay with our practice. Past pregn jayjay history of gestational hypertension 353699808 Z87.59 [id number] Amaya Grace MD [facility] [address] [place] [address] 01/16/2024 14:58:57 01/16/2024 15:48:49 Routine care 451660457 Z34.82 Gestation period, 16 weeks 12697485 Z3A.16 screening 2437 89960 Z36.9 Maternal o besity complicating , childbirth and the puerperium, antepartum 7324706815 07 O99.784 [id number] Nelda JohnJavier is, [facility] [address] [place] [address] 02/16/2024 13:54:22 02/18/2024 13:22:05 Gestation period, 20 weeks 14166096 Z3A.20 [id number] Nelda Rivera is, [facility] [address] [place] [address] 03/12/2024 15:02:11 03/13/2024 10:27:40 Gestation period, 24 weeks 437383292 Z3A.24 [id number] Amaya Grace MD [facility] [address] [place] [address] 04/12/2024 15:45:12 04/12/2024 16:36:38 Depression screening 625651575 Z13.31 See Screening Section for EPDS Questionna mariluz Result Gestation period, 28 weeks 75172352 Z3A.28 screening 2437 60466 Z36.9 Normal 7266904 2 Z34.83 Additional diagnosis detail: Normal in multigravi da in third trimester [id number] [facility]ALES, [facility] [address] [place] [address] 04/24/2024 13:34:57 04/24/2024 15:01:38 Gestation period, 29 weeks 01126933 Z3A.29 Additional diagnosis detail: 29 weeks gestation of High risk 4720 0007 O09.92 Pt is here for a ARIEL appointmen t. She is taking vitamins. She has no complaints or questions. Denies vaginal bleeding, abdominal cramps, N/V, contractio ns, and LOF. Denies headache, vision changes, swelling of hands or face, and epigastric pain. Reports feeling movement. Discussed Movement Counts. Education provided on TdapRhoGam : Not neededPlan sarbjit to deliver @ [facility], is planning to transfer care once she finds an OB. GBS: @36 weeks Discussed PTL and precaution s given. There are no identifiab le risk factors for pre-term labor. Discussed with pt that I do not delivery babies. Recommende d pt see a Delivery provider next visit. Hypertensive disorder 38 438385 I10 Admitted at [facility] 04/17 for elevated BP. Labetalol changed to 600mg TID Health Concerns Section Related Observation LastModified by Organization Detai ls LastModified Time None Recorded Concern Status LastModified by Organization Details LastModified Time None Recorded Advance Directives Directive None Recorded Payers Encounter Date Sequence Insurance Name Policy Number Policy Rincon Covered Member ID Rincon Member ID Guarantor Name 01/16/2024 1 [facility] [employer] Fercho Niebuhr [id number] Fercho Niebuhr 02/16/2024 1 [facility] [employer] Fercho Niebuhr [id number] Fercho Niebuhr 03/12/2024 1 [facility] [employer] Fercho Niebuhr [id number] Fercho Niebuhr 04/12/2024 1 [facility] [employer] Fercho Niebuhr [id number] Fercho Niebuhr 04/24/2024 1 [facility] [employer] Fercho Niebuhr [id number] Fercho Niebuhr Notes Date Note Type Note Provider Name and Address Organization Details Recorded Time 4 text/html Fercho 33 y/o here for routine OB visit, she is 16/0 weeks, denies any vaginal spotting, bleeding, fluid leakage, or cramping, movement (Flutters) noted, taking vitamins, and Asprin 2 dailyAnxiety about , dry skin and eczema, and weight gain concerns. The patient is a 33-year-old female with a history of a previous miscarriage, now experiencing anxiety about her current . She has been experiencing dry skin and eczema since the beginning of her . Amaya Grace MD [address] [facility], [place], [address], [facility] [employer] 01/16/2024 23:25:02 4 text/html OB ProblemReported bypatient.Associated Symptoms:no abdominal pain; no cramping; no contractions; no bleeding; no ROM; no vaginal discharge; no vaginal/vulvar itching or irritation; no dysuria; no frequency; no urgency; no hematuria; no fever; no nausea; no emesis; no constipation; no diarrhea/loose stool; no edema; no visual changes; no headache; no dizziness; no decrease in urine volume; no breathlessness; no hyper-reflexia;abnormal movement(decreased) Fercho presents today with decreased movement.She states beginning of the week she had not felt the baby move for 3 or 4 days.She was seen at [facility] L[facility]D on Monday of this week.She is here today for a follow up from L&D. Nelda Tristan [id number] [place], [address], [facility] 02/17/2024 13:01:26 4 text/html Fercho is here today for a routine OB visit. She is currently at {{6 7 8 9 10 11 12 13 1 4 15 16 17 18 19 20 21 22 23 24 25 26 27 28 29 30 31 32 33 34 35 36 3 7 38 39 40 41 24.0#}} weeks gestation. vitamins: {{yes* no}} She {{has* has not}} felt movement. She denies any complaints of the presence of vaginal bleed, leaking fluid, abdominal cramps, nausea, vomiting, headache or visual disturbancePatient she went to ER last week for baby not moving and they say she had high blood pressure they prescribed her medication nifedipine she state that she has not been having any symptoms Nelda Tristan CNM [address] [place], [address], [facility] 03/12/2024 16:00:28 4 text/html Patient is here today for a routine OB visit. She is currently at {{6 7 8 9 10 11 12 13 1 4 15 16 17 18 19 20 21 22 23 24 25 26 27 28 29 30 31 32 33 34 35 36 3 7 38 39 40 41 28.3#}} weeks gestation. vitamins: {{yes* no}} She {{has* has not}} felt movement. She denies any complaints of the presence of vaginal bleed, leaking fluid, abdominal cramps, nausea, vomiting, headache or visual disturbances. Amaya Grace MD [address] [place], [address], [facility] 04/12/2024 16:32:42 4 text/html Patient is here today for a routine OB visit. She is currently at {{6 7 8 9 10 11 12 13 1 4 15 16 17 18 19 20 21 22 23 24 25 26 27 28 29 30 31 32 33 34 35 36 3 7 38 39 40 41 30.1#}} weeks gestation. vitamins: {{yes* no}} She {{has* has not}} felt movement.She denies any complaints of the presence of vaginal bleed, leaking fluid, abdominal cramps, nausea, vomiting, headache or visual disturbances. GRAZYNA COL[place]ADO [address] [facility], [place], [address], [facility] 04/24/2024 14:23:35 OBGyn Episode Ob Episode Information Episode Created Date Number of Fetuses Patient Bloodtype Patient rh Status Prepregnancy Weight lbs Domestic Partner Domestic Partner Phone Father Name Classics Teacher Status 11/28/19 24 1 CLOSED Fetus Data First Name Last Name Admitted to NICU Weight (g) Sex Living Outcome Pediatric Complications Fetus ID Race Codes Race Delivery Type 3061.74 6 Full Term [id number] Primary Armand Calculation Initial Armand Date Initial Exam Date Initial Exam Provider Initial Ultrasound Date Last Menstrual Period Date Ultra Sound Weeks Gestation 0 Eighteen To Twenty Week Armand Update Ultra Sound Date Fundal Height At Umbil Quickening Date Ultra Sound Latest Weeks Gestation Final Armand Confirmed By Final Armand Confirmed Date Final Armand Date Ultra Sound Latest Days Gestation 0 0 Menstrual History Last Menstrual Date Menses Monthly On Bcp Conception Prior Menses Frequency Hcg Plus Date Menarche Onset Age Delivery Information Delivery Date Delivery Type Labor Anesthesia Weeks Gestation Incision Type Labor Labor Length Hrs Delivered By Post Complications Tubal Sterilization Discharge Date Comments 1 41 FHTs, dilated to 4 cm Discharge Information Feeding Method Contraceptive Method Maternal HG B and HCT Levels Ob Episode Information Episode Created Date Number of Fetuses Patient Bloodtype Patient rh Status Prepregnancy Weight lbs Domestic Partner Domestic Partner Phone Father Name Classics Teacher Status 12/19/19 24 1 A Positive CLOSED Fetus Data First Name Last Name Admitted to NICU Weight (g) Sex Living Outcome Pediatric Complications Fetus ID Race Codes Race Delivery Type [id number] Problems Problem Notes PAP Problem Name Start Date End Date Resolution Snomed Code Not e Carrier of alpha thalassemia [id number] UNITY low ris k fetus Maternal obesity complicating , childbirth and the puerperium, antepartum 01/15/2024 666313468067 Dilatation of renal pelvis Right, 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 HELLP Labs WNL. Procardia 30 qday discontinued. Body mass index 40+ - severely obese 945899498 50.7 Past history of gestational hypertension 555783124 States it was right before delivery, she was never on medication and they did not dx pre-E Past history of section 875928818 x1; planning repeat c/s Armand Calculation Initial Armand Date Initial Exam Date Initial Exam Provider Initial Ultrasound Date Last Menstrual Period Date Ultra Sound Weeks Gestation 07/02/2024 2023 0 Eighteen To Twenty Week Armand Update Ultra Sound Date Fundal Height At Umbil Quickening Date Ultra Sound Latest Weeks Gestation Final Armand Confirmed By Final Armand Confirmed Date Final Armand Date Ultra Sound Latest Days Gestation 0 0 Pre- Flowsheet Flowsheet Date 2023 Manzano Score Blood Edema Fundus Height Fundus Units Glucose Ketones Leukocytes Nitrite Labor Signs Protein Cervic Dilation Cervic Effacement Cervic Station none Type Weight in lbs Pre/Post Dialysis Refused With clothes 275.457428696646 BP Diastolic BP Location Tested BP Systolic BP Type 82 134 sitting Fetus Heart Rate Present A 134 Present Fetus Movement Comments NOB labs, baseline Pre-E, an d UNITY done today. Pt needs PAP but declines today. Education given, we will need a PAP . Low dose aspirin recommended. History of x1 with GHTN. Desires . Pre- BMI: 50.7; Planned for pt to meet with MD for 1st OB but appointment was rescheduled; next apt will be with MD to assess if pt can stay with our practice. Informed pt of this. Flowsheet Date 01/16/2024 Manzano Score Blood Edema Fundus Height Fundus Units Glucose Ketones Leukocytes Nitrite Labor Signs Protein Cervic Dilation Cervic Effacement Cervic Station none none Other (see comments ) neg Type Weight in lbs Pre/Post Dialysis Refused With clothes 276.885495510618 BP Diastolic BP Location Tested BP Systolic BP Type 76 R arm 126 sitting Fetus Heart Rate Present A 151 Fetus Movement A No Comments 1. Anxiety about : The patient has a history of a previous miscarriage and is experiencing anxiety about her current . We will continue to monitor her closely, provide reassurance during visits, and perform ultrasounds as necessary to ensure the well-being of the fetus. If anxiety persists or worsens, consider referral to a mental health professional for further evaluation and support. 2. Dry skin and eczema: The patient reports dry skin and eczema since the beginning of her . Recommend trying Cetaphil lotion or Aquaphor for relief. If the condition does not improve or worsens, consider referral to a grounds worker for further evaluation and treatment. 3. Weight gain concern: The patient's starting weight was 277-278 lbs, and she is now 276 lbs. Encourage maintaining a healthy diet, staying active, and limiting weight gain to 10 lbs during . Monitor weight and overall health closely throughout the , with particular attention to potential risks such as gestational diabetes and hypertension.4. Previous with delivery following unsuccessful IOL at 41 weeks GA. Discussed avoiding IOL due to history of c/s and if patient is interested in TOLAC, she would need to go to tertiary care facility. Patient states she likely will proceed with repeat c/s. Flowsheet Date 02/16/2024 Manzano Score Blood Edema Fundus Height Fundus Units Glucose Ketones Leukocytes Nitrite Labor Signs Protein Cervic Dilation Cervic Effacement Cervic Station Type Weight in lbs Pre/Post Dialysis Refused Weight 274.385669560378 BP Diastolic BP Location Tested BP Systolic BP Type 86 138 Fetus Heart Rate Present A 140 Fetus Movement A Yes Comments Has US with M this coming week No concerns today Flowsheet Date 03/12/2024 Manzano Score Blood Edema Fundus Height Fundus Units Glucose Ketones Leukocytes Nitrite Labor Signs Protein Cervic Dilation Cervic Effacement Cervic Station none trace Type Weight in lbs Pre/Post Dialysis Refused With clothes 274.82293994045 BP Diastolic BP Location Tested BP Systolic BP Type 90 130 sitting Fetus Heart Rate Present A 134 Fetus Movement Comments incomplete anatomy 68%ile , anterior placentahas FU with MFM next week Flowsheet Date 04/12/2024 Manzano Score Blood Edema Fundus Height Fundus Units Glucose Ketones Leukocytes Nitrite Labor Signs Protein Cervic Dilation Cervic Effacement Cervic Station none 34 cm none none neg Type Weight in lbs Pre/Post Dialysis Refused With clothes 278.203101134176 BP Diastolic BP Location Tested BP Systolic BP Type 82 130 sitting Fetus Heart Rate Present A 122 Present Fetus Movement A Yes Comments No complaints. 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 28 week labs today. Sent request for c/s Flowsheet Date 04/24/2024 Manzano Score Blood Edema Fundus Height Fundus Units Glucose Ketones Leukocytes Nitrite Labor Signs Protein Cervic Dilation Cervic Effacement Cervic Station none 3+ none neg Type Weight in lbs Pre/Post Dialysis Refused With clothes 275.88077485711 BP Diastolic BP Location Tested BP Systolic BP Type 76 R arm 128 sitting Fetus Heart Rate Present A 128 Present Fetus Movement A Yes Comments No OB complaints today. Admi tted to [facility] on 04/17 for severe range BP. Was given 2 doses of IVP BP meds. Labetalol was changed to 600mg TID. PC ratio was 0.11 up from 04/12 of 0.088. Anatomy was complete with [facility] on 03/22. Patient is planning to deliver at [facility] per [facility] recommendations. She is looking for OB there and will transfer full care. Pre-e labs today, denies any symptoms. Pre-e s/sx reviewed. Next [facility] appointment on 04/14 to monitor fetus' kidneys. Will plan to keep next appointment and needs NST/BPP unless she finds OB before then. Discussed weekly pre-e labs and testing if does not find OB at [facility] and delivers with us. Menstrual History Last Menstrual Date Menses Monthly On Bcp Conception Prior Menses Frequency Hcg Plus Date Menarche Onset Age Genetic Screening And Infection History Question Response Note Thalassemia (Khmer, Greenlandic, Mediterranean, Or Background): MCV < 80 false Intellectual Disability/Autism false Personal or Family History of Congenital Heart D efect false History of Hepatitis false Muscular Dystrophy false Sickle Cell Disease Or Trait () false Patient Or Partner Has History Of Genital Herpes false Hemophilia Or Other Blood Disorders false Chidi Disease false Patient's Age Will Be 35 Years Or Older At Estim ated Date of Delivery false If Yes, Agent(s) And Strength/Dosage false Medications (including Suppl ements, Vitamins, Herbs, OTC Drugs), Illicit/Recreational Drugs, Alcohol false Other Structural Defect false Recent Travel History Outside of Country false Maternal Metabolic Disorder (eg, Type 1 Diabetes , PKU) false Tye-Sachs (eg, Church, Cajun, Grenadian-[place]) f alse Other Infection History false [place]'s Chorea false Cystic Fibrosis false Recurrent Loss, Or A Stillbirth false Rash Or Viral Illness Since Last Menstrual Perio d false Live With Someone With TB Or Exposed To TB false Mental Retardation/Autism false If Yes, Was Person Tested For Fragile X? false History of HIV false Any Other Genetic History false Hemoglobinopathy Or Carrier false Prior GBS-infected child false Down Syndrome false Other Inherited Genetic Or Chromosomal Disorder false Patient Or Baby's Father Had A Child With Defects Not Listed Above false Personal or Family History o f Neural Tube Defect (Meningomyelocele, Spina Bifida, Or Anencephaly) false History Of STD, Gonorrhea, Chlamydia, HPV, Syphi lis false Delivery Information Delivery Date Delivery Type Labor Anesthesia Weeks Gestation Incision Type Labor Labor Length Hrs Delivered By Post Complications Tubal Sterilization Discharge Date Comments Discharge Information Feeding Method Contraceptive Method Maternal HG B and HCT Levels
--- OUTSIDE RECORDS SUMMARY | 2025-03-17 21:46 | XMS_ITS | Clinical Summary ---
Author Organization [facility] Address [address] [place] [address] Care Team Providers Care Developmental Training Counselor Name Role Phone Unavailable Primary Care Provider Unavailabl e Source Comments [facility],non-owned Affiliates and Associated Physician Practices is amultiple site organization consisting of ambulatory clinics and hospital sitesin [place], [place], [place] and [place]. This disclosure is being madepursuant to the Care Everywhere program and may not contain all information available regarding this patient. Last updated 18.[facility] Twt[facility]ks Allergies No known active allergies Medications * Be aware that medications may not be up to date on this document. Alwaysverify current medications with the patient. No known medications Immunizations Immunization Administration Dates Next Due TDAP (7yrs+) 07/14/2020 Family History Medical History Relation Name Comments Diabetes - Type 2 Mother Relation Name Status Comments Mother Social History Tobacco Use Types Packs/Day Years Used Date Smoking Tobacco: Never Smokeless Tobacco: Never Comments No Sex and Gender Information Value Date Recorded Sex Assigned at Not on file Legal Sex Female 5:25 PM CDT Gender Identity Not on file Sexual Orientation Not on file Last Filed Vital Signs Vital Sign Reading Time Taken Comments Blood Pressure 142/68 07/16/2020 5:54 PM CDT Pulse 104 07/16/2020 5:54 PM CDT Temperature 37 C (98.6 F) 07/16/2020 5:54 PM CDT Respiratory Rate 19 07/16/2020 5:54 PM CDT Oxygen Saturation 97% 07/16/2020 5:54 PM CDT Inhaled Oxygen Concentration - - Weight 122.5 kg (270 lb) 07/16/2020 5:54 PM CDT Height 157.5 cm (5' 2 ) 07/16/2020 5:54 PM CDT Body Mass Index 49.38 07/16/2020 5:54 PM CDT Plan of Treatment Health Maintenance Due Date Last Done Comments PAP SMEAR 1990 HIV SCREENING 2005 HEPATITIS C SCREENING 12/14/2008 HEPATITIS B VACCINE (1 of 3 - 19+ 3-dose series) 2009 COVID-19 VACCINE (2023-2 5 season) 2024 DEPRESSION SCREENING 11/20/2024 INFLUENZA VACCINE (Season Ended) 2025 DTAP/TDAP/TD VACCINES (2 - T d or Tdap) 07/14/2030 07/14/2020 ZOSTER VACCINE (1 of 2) 2040 HIB VACCINE Aged Out No longer eligi ble based on patient's age to complete this topic HPV VACCINE Aged Out No longer eligi ble based on patient's age to complete this topic MENINGOCOCCAL (Group B) VACC INE SHARED DECISION-MAKING Aged Out No longer eligibl e based on patient's age to complete this topic MENINGOCOCCAL GROUPS A/C/Y/W VACCINE Aged Out No longer eligible b ased on patient's age to complete this topic PNEUMOCOCCAL VACCINE Aged Out No long er eligible based on patient's age to complete this topic Insurance
--- OUTSIDE RECORDS SUMMARY | 2025-03-17 21:46 | XMS_ITS | Clinical Summary ---
Author Organization [facility] Address [address] [place] [address] Care Team Providers Care Body Shop Mechanic Name Role Phone Unavailable Primary Care Provider Unavailabl e Social History Tobacco Use Types Packs/Day Years Used Date Smoking Tobacco: Never Assessed Comments Unknown Sex and Gender Information Value Date Recorded Sex Assigned at Not on file Legal Sex Female 11:23 AM CDT Gender Identity Not on file Sexual Orientation Not on file Plan of Treatment Health Maintenance Due Date Last Done Comments Cervical Cancer Screening Pa p Smear (Age 30 to 64) Every 3 Years 1990 Annual Physical 1993 Hepatitis C 2008 DTaP, Tdap and Td Vaccines ( 1 - Tdap) 2009 Hepatitis B Vaccines (1 of 3 - 19+ 3-dose series) 2009 Cervical Cancer Screening Pa p with HPV Testing (Age 30 to 64) Every 5 Years 2020 Cervical Cancer Screening with HPV 2020 COVID-19 Vaccine (2023-2 5 season) 2024 HPV Vaccines Aged Out No longer eligi ble based on patient's age to complete this topic Meningococcal B Vaccine Aged Out No l onger eligible based on patient's age to complete this topic Meningococcal Vaccine Aged Out No paulo jennifer eligible based on patient's age to complete this topic Pneumococcal Vaccine: Pediat rics (0 to 5 Years) and At-Risk Patients (6 to 49 Years) Aged Out No longer eligible b ased on patient's age to complete this topic RSV Immunizations Under 20 Months Aged Out No longer eligible based on patient's age to complete this topic
[2025-03-17 21:50] VITALS: BP 165/100; PULSE 98; RESP 18; TEMP 36.7; O2SAT 100
[2025-03-17 23:26] VITALS: BP 156/105
--- NOTE | 2025-03-18 01:39 | PC.NURSE ---
Patient seen walking out of ED around 0015 with and two kids, call x1 for room at 0135
--- NOTE | 2025-03-18 02:12 | PC.NURSE ---
Call x2, no answer
--- OUTSIDE RECORDS SUMMARY | 2025-03-18 02:33 | XMS_ITS | Clinical Summary ---
Author Organization [facility] Address [address] [place] [address] Care Team Providers Care Emergency Veterinary Assistant Name Role Phone Unavailable Primary Care Provider Unavailabl e Source Comments [facility],non-owned Affiliates and Associated Physician Practices is amultiple site organization consisting of ambulatory clinics and hospital sitesin [place], [place], [place] and [place]. This disclosure is being madepursuant to the Care Everywhere program and may not contain all information available regarding this patient. Last updated 18.[facility] [place] Allergies No known active allergies Medications * [...]
--- OUTSIDE RECORDS SUMMARY | 2025-03-18 02:33 | XMS_ITS | Clinical Summary ---
Author Organization [facility] Address [address] [place] [address] Care Team Providers Care [employer] Executive Director Name Role Phone Unavailable Primary Care Provider [...]
--- OUTSIDE RECORDS SUMMARY | 2025-03-18 02:33 | XMS_ITS | Clinical Summary ---
Author Organization [facility] Address [address] [place] [id number] Care Team Providers Care Tape Maker Name Role Phone No, Physician Primary Care Provider [phone] Allergies No known active allergies Medications vit 26-kipg-[id number]-dh a 27mg iron- 800 mcg-250 mg capsule [...] patient's age to complete this topic Insurance BBE ID Member Subscriber Plan / Payer (Ef fective 2023-Present) Name:Fercho Parrish Relation to Subscriber:Self Name:Fercho Parrish Payer ID:[id number] (NAIC) Group ID:[id number] Type:HEALTHCARE/EXCHANGE Address: [address] Care Teams Tape Maker Relationship Specialty Start Date End Date No, Physician PCP - General 02/08/24
--- OUTSIDE RECORDS SUMMARY | 2025-03-18 02:33 | XMS_ITS | Encounter Summary ---
Author Organization [facility] Address [address] [place] [address] Care Team Providers Care Button Maker And Installer Name Role Phone Unavailable Primary Care Provider Unavailabl e Reason for Visit * Reason Onset Date Comments Insurance Issue/question 02/08/2024 Encounter Details Date Type Department Care Team (Late st Contact Info) Description 02/08/2024 Telephone Maternal & Care at [facility] [address] [place] [address] Sallie Hawthorne Insurance Issue/question Social History Tobacco [...] 10:34 AM CDT Patient was scheduled in [facility] under an Out of Network insurance plan, [facility] Individual Exchange plan. I spoke with patient and explained that her visits would not be covered under her insurance since [facility] does not have a contract with that particular plan. I advised her to contact her primary OB as well as her insurance to try to find an in network provider. She agreed to do so. I told her I was going to cancel her appointments with [facility]. documented in this encounter Plan of Treatment Not on file documented as of this encounter Visit Diagnoses Not on filedocumented in this encounter
--- OUTSIDE RECORDS SUMMARY | 2025-03-18 02:33 | XMS_ITS | Clinical Summary ---
Author Organization [facility] Address [address] [place] [id number] Phone Care Team Providers Care Cut Off Worker Name Role Phone Unavailable Primary Care Provider [...] Group ID:[id number] Type:RX Commercial Address: [employer] (INTERNAL) [facility] Internal Plans Advance Directives For more information, please contact: [phone] * Full Code (Latest Code Status on [...]
--- OUTSIDE RECORDS SUMMARY | 2025-03-18 02:33 | XMS_ITS | Referral Summary ---
Author Organization [facility] Address [address] [place] [id number] Care Team Providers Care Category Specialist Name Role Phone No, Physician Primary Care Provider [phone] Allergies No known active allergies Medications vit 20-swby-[id number]-dh a 27mg iron- 800 mcg-250 mg capsule [...] Treatment Not on file Insurance Care Teams Category Specialist Relationship Specialty Start Date End Date No, Physician PCP - General 02/08/24
== END 2025-03-18 00:15 | disposition left against medical advice (07) ==
DX: I10 Essential (primary) hypertension (principal)
CPT/HCPCS: 99199

== ENCOUNTER 2025-07-23 09:09 | Emergency (ER) | payer MEDICAID, SELFPAY ==
[2025-07-23 09:17] VITALS: BP 148/106; PULSE 124; RESP 20; TEMP 36.8; O2SAT 97
--- NOTE | 2025-07-23 09:22 | ED_ITS ---
HPI - Dental/Oral General Chief complaint: Dental/Oral Stated complaint: Dental pain Time Seen by Provider: 07/23/25 09:22 Source: patient, RN notes reviewed and old records reviewed Mode of arrival: ambulatory Limitations: no limitations History of Present Illness HPI Narrative: 34 year old female who presents to [facility] care with complaints of right lower posterior gum tenderness which started on Monday with no drainage from area but with palpable pain swelling and redness Patient reports that she was told she does not have wisdom tooth back there but swelling and redness in area where wisdom tooth would be located She has no facial pain or swelling noted. Patient has elevated blood pressure of 148/106 initially with manual recheck 142/94. Patient reports that she had hypertension with her last and was put on medication and was eventually weaned down off of medication. Patient reports that she lost her insurance and just got it back and needs to find a doctor. Patient reports that she does have blood pressure cuff at home to monitor her pressure.Patient reports that she has used salt water gargles, oragel and ice for her dentalgia, reports no fevers. Onset (ago): day(s) (3) Severity: moderate Treatment prior to arrival: other (salt water gargles, oragel and ice) Related Data Allergies Allergy/AdvReac Type Severity Reaction Status Date / Time No Known Allergies Allergy Verified 07/23/25 09:40 Review of Systems Review of Systems: CONSTITUTIONAL: Denies fever, chills, or sweats. ENT: Denies rhinorrhea, congestion, sore throat, or otalgia. Reports dental pain to gum area right lower bottom where wisdom tooth wound be located with no drainage noted, patient reports she was told she doesn't have wisdom tooth in that area. CARDIOVASCULAR: Denies chest pain, palpitations, or edema, blood pressure elevation noted does not have primary care physician.. RESPIRATORY: Denies cough or dyspnea. SKIN: Denies rash or itching. MUSCULOSKELETAL: Denies myalgia. NEUROLOGIC: Denies headache All systems reviewed & are unremarkable except as noted in HPI and below PMFSH Past Medical History Medical History (Updated 07/23/25 @ 10:26 by Lily Brand NP) Hypertension No acute medical problems Surgical History Surgical History No history of previous surgery Family History Family History Other Diabetes mellitus Hypertension Social History Social History Smoking status: Never smoker Alcohol intake: current Gender identity (if verbalized by the patient): Female Comments At time of signature, agree with nursing past medical, surgical, social and family history. There is no relevant family history pertinent to the presenting complaint Exam Narrative: GENERAL: Well-appearing, well-nourished,obese, and in no acute distress. HEAD: Normocephalic, atraumatic. EYES: PERRLA and EOMI. ENT: Nares clear, no rhinorrhea or epistaxis. Mucous membranes moist. Missing #28 molar, noted redness with swelling of gum and pain to right lower most posterior gum area with no drainage noted. Patient has no trismus or any Edil angina, no facial swelling noted. NECK: Supple. no lymphadenopathy CHEST: Clear to auscultation. No respiratory distress.SAO2 97% on room air HEART: Regular rate and rhythm. No murmur heard. Normal peripheral pulses. SKIN: Warm, dry, no rash. NEURO: No focal deficits. Alert and oriented x3. Course Course Emergency Course: Patient is aware of diagnosis, understands and agrees to treatment plan. Anticipatory guidance given. Patient agrees to follow-up as directed and is aware of reasons to seek care at the emergency department. Portions of this record may have been created with voice recognition software Level of Care: Express Care Visit Vital Signs Vital signs: Vital Signs Temperature 36.8 C 07/23/25 09:17 Pulse Rate 124 H 07/23/25 09:17 Respiratory Rate 20 07/23/25 09:17 Blood Pressure 148/106 H 07/23/25 09:17 Pulse Oximetry 97 07/23/25 09:17 Oxygen Delivery Room Air 07/23/25 09:17 Temperature 36.8 C 07/23/25 09:17 Pulse Rate 124 H 07/23/25 09:17 Respiratory Rate 20 07/23/25 09:17 Blood Pressure 142/94 H 07/23/25 09:39 Pulse Oximetry 97 07/23/25 09:17 Oxygen Delivery Room Air 07/23/25 09:17 Reviewed MDM - Dental/Oral MDM Narrative Medical decision making narrative: Patients pain and complaint coupled with physical findings are consistent with dentalgia. There are no focal signs of space occupying lesions that are compromising to the airway; no dysphagia, odynophagia, dysphonia, or dyspnea. No uvular deviation or soft palate edema. Patient is non-toxic appearing. The floor of the mouth is soft with no signs of Edil's Angina; no induration below mandible, no neck pain.? Patient is without trismus or drooling and able to swallow secretions.? Patient is felt appropriate for discharge home with dental follow up. Differential Diagnosis Differential diagnosis: Likely gingival abscess, toothache and other (uncontrolled hypertension) Medical Records Attestation: I reviewed the patient's medical records. Critical Care Time Critical Care Time Critical Care Time: No Discharge Plan Discharge Clinical Impression: Dentalgia, Abnormal blood pressure, Gingival abscess Patient Disposition: Home Condition: Stable Instructions: Antibiotic Form, Hypertension (ED), Gingivitis (ED) Additional Instructions: Avoid temperature extremes May apply heat or ice to the face Gentle brushing and flossing Antibiotic as directed Tylenol for lesser pain Use ibuprofen regularly Follow-up with the dentist as soon as possible--see the list provided If your symptoms persist, change or worsen significantly before you can contact your personal physician then please, without delay, go to the emergency department for further evaluation. Follow-up with PCP in 7-10 days or sooner if needed Follow up with PCP soon in regards to your blood pressure which is elevated above threshold for referral. Blood pressure above 120/80 may indicate pre- hypertension. 142/94 on manual recheck patient given medication for 1 month and instructed to take blood pressure twice daily with home cuff and get established with primary care provider. List of physicians in area given. Patient Language: [place] Prescriptions: New amoxicillin 875 mg tablet 875 mg PO Q12H Qty: 20 0RF nifedipine [Procardia XL] 30 mg tablet extended release 24hr 30 mg PO BID Qty: 60 0RF Follow-up/Referrals: PHYSICIAN,SPECIAL DELIVERY MAIL CARRIER [Primary Care Provider, Internal Medicine] Stand Alone Forms: Work/School Release IP Time of Disposition: 10:05 Quality Bhavik Coma Scale Eyes: Open Verbal: Oriented and Alert Motor: Follows Commands Bhavik Coma Total Score: 15
[2025-07-23 09:34] VITALS: BP 142/94
[2025-07-23 09:39] VITALS: BP 142/94
== END 2025-07-23 10:08 | disposition home or self-care (01) ==
PROVIDERS: Emergency Provider Registered Nurse
DX: K05.20 Aggressive periodontitis, unspecified (principal); I10 Essential (primary) hypertension
CPT/HCPCS: 99213; G0463

== ENCOUNTER 2025-07-31 06:56 | Emergency (ER) | payer MEDICAID, SELFPAY ==
[2025-07-31] VITALS (9 sets, daily range): BP systolic 124–150; BP diastolic 75–94; PULSE 106–122; RESP 9–27; TEMP 36.8; O2SAT 97–100
--- NOTE | 2025-07-31 07:30 | ED_ITS ---
HPI - Allergic Reaction General Chief complaint: Allergic Reaction Stated complaint: hives Time Seen by Provider: 07/31/25 07:23 History of Present Illness HPI narrative: Pt presents with rash all over trunk and extremities that itches. Pt has been on amoxil for dental abscess for several days. Pt denies any new soaps or detergetnts or other potential trigger. Pt denies SOB or throat swelling. Related Data Allergies Allergy/AdvReac Type Severity Reaction Status Date / Time amoxicillin Allergy Intermediate Hives Verified 07/31/25 07:06 Review of Systems Review of Systems: All systems reviewed & are unremarkable except as noted in HPI and below PMFSH Past Medical History Medical History (Updated 07/31/25 @ 09:09 by Tip Quintanilla III, DO) Hypertension No acute medical problems Surgical History Surgical History No history of previous surgery Family History Family History Other Diabetes mellitus Hypertension Social History Social History Smoking status: Never smoker Alcohol intake: current Gender identity (if verbalized by the patient): Female Exam Const: General: healthy appearing and no acute distress Nutritional Appearance: well nourished Orientation/consciousness: patient oriented x3 Limitations: no limitations HENMT: Head: normal to inspection Ears: external ears normal F srinivas/Nose/Sinus: Normal external nose present Face and sinus: normal facial exam Mouth: Yes Normal oral and palatal mucosa present Throat: posterior oropharynx normal Eyes: EOM: EOMs intact bilaterally Neck: Neck: normal visual inspection and no lymphadenopathy Chest: Chest palpation & inspection: normal inspection of the chest Resp: Effort & Inspection: normal respiratory effort Auscultation: clear to auscultation bilaterally Cardio: Rate: regular rate Rhythm: regular rhythm GI: GI Palp: Yes Soft to palpation and No Tenderness to palpation present (GI) Auscultation: normal bowel sounds Skin: Other: macular blanchable rash to trunk and extremities Neuro: General: patient oriented x3, moves all extremities, no meningeal signs and no focal motor deficits Speech: normal speech Extrem: General: normal to inspection and no clubbing, cyanosis or edema Psych: Mental Status: mental status grossly normal Affect: normal affect Attitude: cooperative Course Vital Signs Vital signs: Vital Signs Pulse Rate 117 H 07/31/25 07:00 Respiratory Rate 16 07/31/25 07:00 Blood Pressure 150/92 H 07/31/25 07:00 Pulse Oximetry 97 07/31/25 07:00 Oxygen Delivery Room Air 07/31/25 07:00 Temperature 98.2 F 07/31/25 07:04 Pulse Rate 106 H 07/31/25 09:25 Respiratory Rate 12 07/31/25 09:25 Blood Pressure 140/75 07/31/25 09:25 Pulse Oximetry 100 07/31/25 09:25 Oxygen Delivery Room Air 07/31/25 07:04 MDM - Allergic Reaction MDM Narrative Medical decision making narrative: Pt appears to be having allergic rxn to amoxil. Will give benadryl, decadron, pepcid and epi and recheck. Pt feels better after meds. home on prednisone with otc benadryl. stop amoxil. Differential Diagnosis Differential diagnosis: Likely anaphylaxis, allergic reaction, angioedema and adverse reaction to drug Discharge Plan Discharge Clinical Impression: Allergic reaction, Adverse reaction to drug Patient Disposition: Home Condition: Improved Instructions: Antibiotic Form, Antibiotic Medication Allergy (ED) Patient Language: Nepali Prescriptions: New prednisone 50 mg tablet 50 mg PO DAILY Qty: 5 0RF No Action amoxicillin 875 mg tablet 875 mg PO Q12H Qty: 20 0RF nifedipine [Procardia XL] 30 mg tablet extended release 24hr 30 mg PO BID Qty: 60 0RF Follow-up/Referrals: Beronica Lopez WORKING MANAGER-C [Primary Care Provider, Internal Medicine] Stand Alone Forms: Work/School Release IP
[2025-07-31] MEDS: dexAMETHasone SOD PHOS INJ 10 MG/ML 1 ML VIAL IV PUSH (07:47)
[2025-07-31] MEDS: FAMOTIDINE 20 MG/2 ML VIAL IV PUSH (07:51)
[2025-07-31] MEDS: EPINEPHrine HCL INJ 1 MG/ML AMPUL 0.3 MG SUB-Q (07:58)
== END 2025-07-31 09:25 | disposition home or self-care (01) ==
PROVIDERS: Emergency Provider Emergency Medicine; PCP Nurse Practitioner
DX: L50.9 Urticaria, unspecified (principal); T36.0X5A Adverse effect of penicillins, initial encounter; I10 Essential (primary) hypertension
CPT/HCPCS: 96372; 96374; 96375; 99284; J0166; J1100; J1200